=== PATIENT | male | born 1960 | race African-American/Black ===

== ENCOUNTER 2018-10-16 08:34 | Observation (INO) | payer MEDICARE ==
[2018-10-16 09:31] LABS: #Eosinphils 0.1 thou/uL (0.0-0.7); #Lymphocytes 1.3 thou/uL (1.20-3.40); #Monocytes 0.5 thou/uL (0.11-0.59); #Neutrophils 3.8 thou/uL (1.40-6.50); %Basophils 0.6 % (0.0-1.0); %Eosinophils 2.5 % (0.0-10.0); %Lymphocytes 22.3 % (21.0-51.0); %Monocytes 8.6 % (0.0-10.0); Hemoglobin 13.1 g/dL (14.0-18.0); Mean Corpuscular HGB CONC 32.1 g/dL (32.0-36.0); Mean Corpuscular Hemoglobin 30.6 pg (27.0-31.0); Mean Corpuscular Volume 95.5 fL (78.0-98.0); Mean Platelet Volume 9.8 fL (7.4-10.4); Platelet Count 79 thou/uL (130-400); Platelet Morphology Comment Appears Decreased; RBC Distribution Width 14.3 % (11.5-14.5); Red Blood Cell (RBC) Count 4.29 mill/uL (4.70-6.10); White Blood Cell (WBC) Count 5.7 thou/uL (4.8-10.8)
[2018-10-16 09:32] LABS: MDiff Complete? YES
[2018-10-16 09:35] LABS: ALT (SGPT) 10 U/L (8-55); AST (SGOT) 16 U/L (5-34); Albumin 3.9 g/dL (3.5-5.0); Alkaline Phosphatase 66 U/L (40-150); Anion Gap 16 mmol/L (10-20); BUN (Urea Nitrogen) 17 mg/dL (8.4-25.7); Bilirubin, Total 0.7 mg/dL (0.2-1.2); CK (CPK) 56 U/L (30-200); Calc. Creatinine Clearance 0 mL/min (70-130); Calcium 9.2 mg/dL (7.8-10.44); Carbon Dioxide 31 mmol/L (22-29); Chloride 95 mmol/L (98-107); Estimated GFR-MDRD 11; Globulin 3.4 g/dL (2.4-3.5); Glucose 93 mg/dL (70-105); Lipase 80 U/L (8-78); Protein, Total 7.3 g/dL (6.0-8.3); Sodium 138 mmol/L (136-145)
[2018-10-16 09:57] LABS: CKMB 1.4 ng/mL (0-6.6)
[2018-10-16] MEDS ORDERED: Aspirin Chewable 81 MG TAB ONE (10:03)
[2018-10-16] MEDS ORDERED: Nitroglycerin 2% Ointment 1 INCH/1 GM Packet ONE (10:03)
--- NOTE | 2018-10-16 10:26 | RAD ---
XR Chest 1 View Portable History: [Chest pain] Comparison: Radiograph every 2016 Findings: Heart size is enlarged. Small effusions. Mild pulmonary venous congestion. No pneumothorax. Dual lead AICD/pacer is present. Impression: Cardiomegaly, small effusions, and mild pulmonary venous congestion.
[2018-10-16] MEDS ORDERED: Enoxaparin Sodium 80 MG/0.8 ML SYRINGE ONE (12:34)
[2018-10-16 15:06] LABS: Troponin I 0.108 ng/mL (< 0.028)
[2018-10-16] MEDS ORDERED: Ondansetron ODT 4 MG TAB SL PRN (16:57)
[2018-10-16] MEDS ORDERED: Ondansetron PF 4 MG/2 ML Vial IVP PRN (16:57)
[2018-10-16 17:06] VITALS: BMI 23.4
[2018-10-16] MEDS: Nitroglycerin 2% Ointment 1 INCH/1 GM Packet TOP SCH (18:05)
[2018-10-16] MEDS: Melatonin 3 MG TAB PO PRN (23:08)
[2018-10-17] MEDS: Nitroglycerin 2% Ointment 1 INCH/1 GM Packet TOP SCH (00:23)
[2018-10-17] MEDS ORDERED: Ondansetron PF 4 MG/2 ML Vial IVP PRN (11:05)
[2018-10-17] MEDS ORDERED: Ondansetron ODT 4 MG TAB PO PRN (11:05)
[2018-10-17] MEDS: Lisinopril 20 MG TAB PO SCH (20:59)
[2018-10-17] MEDS: Melatonin 3 MG TAB PO PRN (20:59)
[2018-10-17] MEDS: hydrALAZINE 25 MG TAB PO SCH (20:59)
[2018-10-17] MEDS: Carvedilol 25 MG TAB PO SCH (21:00)
[2018-10-17] MEDS: Pravastatin Sodium 40 MG TAB PO SCH (21:00)
--- NOTE | 2018-10-17 21:22 | HP ---
CHIEF COMPLAINT: Chest pain. HISTORY OF PRESENT ILLNESS: Mr. López is a 58-year-old male with past medical history of end-stage renal disease, cardiomyopathy, hypertension, came because of chest pressure while getting dialysis. He said it was pressure-like, nonradiating, associated with some shortness of breath. He almost completed dialysis, almost at the end of it when he complained this pain, so he was sent to the hospital for evaluation. Also he had some nausea, but no vomiting. The patient gets dialysis Thursday, , Thursday, so the patient was sent to the ER. In the ER, the patient was evaluated and by the time he came to the ER, his chest pain resolved. He is being admitted to rule out myocardial infarction in view of his risk factors. PAST MEDICAL HISTORY: 1. Hypertension. 2. End-stage renal disease, on hemodialysis. 3. History of cardiomyopathy, CHF. 4. Hyperlipidemia. 5. Renal cell carcinoma. PAST SURGICAL HISTORY: 1. Status post right nephrectomy. 2. Status post hernia repair. 3. Status post AICD placement. CURRENT MEDICATIONS: He is not clear what he is taking, but he is supposed to be on: 1. Clonidine 0.1 b.i.d. 2. Lisinopril 20 mg b.i.d. 3. Procardia 60 mg b.i.d. 4. Coreg 25 b.i.d. 5. Spironolactone 25 mg daily. 6. Pravachol 40 mg at bedtime. 7. Prevacid 30 mg daily. ALLERGIES: NKDA. FAMILY HISTORY: Nothing significant. SOCIAL HISTORY: Lives alone. No history of smoking. No history of alcohol abuse. Rest of the review of system is unremarkable except for chest pressure. PHYSICAL EXAMINATION: GENERAL: The patient is alert, awake, and oriented x3. VITAL SIGNS: Temperature 98, pulse 80, respiration 20, blood pressure 120/80. HEENT: Head is normocephalic, atraumatic. Pupils are equal and reactive. Nasopharynx is pale and dry. Hard and soft palate. No lesions. SKIN: Turgor decreased. NECK: Supple. No JVD. LUNGS: Bilateral air entry present. No rales, rhonchi. HEART: S1 and S2, regular. ABDOMEN: Soft. No distention. No tenderness. Normal bowel sounds. RECTAL: Deferred. CENTRAL NERVOUS SYSTEM: Nonfocal. EXTREMITIES: No edema. LABORATORY DATA: CBC shows WBC 5.7, hemoglobin 13, hematocrit 40, platelets 79. Metabolic panel; sodium 138, potassium 4, chloride 95, CO2 31, BUN 17, creatinine 6, glucose 93. Troponin I 0.107. BNP of 3842. IMAGIN. EKG showed normal sinus rhythm. No acute ST-T wave changes seen. 2. Chest x-ray, cardiomegaly, mild congestion seen. ASSESSMENT: 1. Chest pressure, rule out myocardial infarction. 2. End-stage renal disease, on hemodialysis. 3. Hypertension. 4. Cardiomyopathy. 5. Hyperlipidemia. PLAN: 1. Vital signs q.4 hours. 2. Activity as tolerated. 3. Allergies: NKDA. 4. Hep-Lock. 5. Continue home medications. 6. Troponin I q.6 hours x2. 7. Diet, cardiac. 8. We will obtain stress test. Job ID: [id number]
[2018-10-18] MEDS: Carvedilol 25 MG TAB PO SCH ×2 (08:48→20:33)
[2018-10-18] MEDS: Aspirin Chewable 81 MG TAB PO SCH (08:48)
[2018-10-18] MEDS: Lisinopril 20 MG TAB PO SCH ×2 (08:49→20:33)
[2018-10-18] MEDS: Spironolactone 25 MG TAB PO SCH (08:49)
[2018-10-18] MEDS: hydrALAZINE 25 MG TAB PO SCH ×3 (08:53→20:32)
--- NOTE | 2018-10-18 19:09 | CON ---
DATE OF CONSULTATION: REASON FOR CONSULTATION: Chest pain. HISTORY OF PRESENT ILLNESS: Mr. López is a pleasant 58-year-old gentleman with past history of nonischemic cardiomyopathy. He has been cathed by Dr. Rene Louis in the past. He states he had a dull sensation noted in his substernal region. He had associated shortness of breath. This occurred while on dialysis. He did have some nausea, but no vomiting. He was seen in the emergency room and is being evaluated. His CK troponin has been negative. PAST MEDICAL HISTORY: Nonischemic cardiomyopathy, hyperlipidemia, renal cell carcinoma, end-stage renal disease, hypertension, nephrectomy, hernia repair, and AICD placement. MEDICATIONS: Procardia, lisinopril, clonidine, Coreg, spironolactone, Pravachol, and prevacid. ALLERGIES: NONE. REVIEW OF SYSTEMS: A 10-point review of systems is reviewed as above, otherwise negative. PHYSICAL EXAMINATION: GENERAL: Patient is a pleasant gentleman, who is in no acute distress. The patient appears their stated age. VITAL SIGNS: Blood pressure 101/63, pulse 66, and temperature 97.5. NEUROLOGIC: The patient is alert and oriented x3 with no focal neurologic deficits. HEENT: Sclerae without icterus. Mouth has moist mucous membranes with normal pallor. NECK: No JVD. Carotid upstroke brisk. No bruits bilaterally. LUNGS: Clear to auscultation with unlabored respirations. BACK: No scoliosis or kyphosis. CARDIAC: Regular rate and rhythm with normal S1 and S2. No S3 or S4 noted. No significant rubs, murmurs, thrills, or gallops noted throughout the precordium. PMI is not displaced. There is no parasternal heave. ABDOMEN: Soft, nontender, nondistended. No peritoneal signs present. No hepatosplenomegaly. No abnormal striae. EXTREMITIES: 2+ femoral and 2+ dorsalis pedis pulses. No cyanosis, clubbing, or edema. SKIN: No gross abnormalities. LAB: CK troponin negative. Hemoglobin 13.1 and creatinine 6.25. BNP of 38.2. Peak troponin of 0.119. IMPRESSION: 1. Chest pain. 2. Nonischemic cardiomyopathy. 3. End-stage renal disease. RECOMMENDATIONS: Mr. López has not had an evaluation from a cardiac standpoint for several years. He had an angiogram performed in 2014. At this point, recommend a noninvasive stress study to assess for any new changes. He does have multiple risk factors as described above. Further recommendations per Dr. Rene Louis in a.m. Job ID: [id number]
[2018-10-18] MEDS: Pravastatin Sodium 40 MG TAB PO SCH (20:33)
--- NOTE | 2018-10-19 03:32 | CON ---
DATE OF CONSULTATION: CONSULTING PHYSICIAN: Alvaro Chow MD REASON FOR CONSULTATION: Need for maintenance hemodialysis. IMPRESSION: 1. End-stage renal disease, on Thursday, , and Thursday schedule. 2. Chest pain with shortness of breath, query cause, possibly related to recurrent pericarditis with pericardial effusion. PLAN: 1. There is no emergent indication for renal replacement therapy (hemodialysis). Therefore, we will place this patient on his normal schedule of Thursday, and Thursday. 2. Further management will be dependent on the clinical course as well as further recommendations from Cardiology Service and the Primary Service. HISTORY OF PRESENT ILLNESS: This is a 58-year-old gentleman, who presented here with shortness of breath and some chest discomfort. Of note, the patient recently did have pericardial window due to large pericardial effusion with possible tamponade physiology. The patient presented here again with shortness of breath and chest discomfort, and the need for renal replacement therapy necessitated this renal consultation. PAST MEDICAL HISTORY: Significant for nonischemic cardiomyopathy, dyslipidemia, renal cell carcinoma and end-stage renal disease. MEDICATIONS: Reviewed and as documented on [facility]. ALLERGIES: NO KNOWN DRUG ALLERGIES. FAMILY HISTORY: Not significantly related to present illness. SOCIAL HISTORY: The patient is . No alcohol. No tobacco. No illicit drug use. 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 PHYSICAL EXAMINATION: GENERAL: The patient was found not to be in any significant distress. VITAL SIGNS: Noted with the following vital signs; afebrile temperature 98, pulse 77, blood pressure 124/72, respiratory rate of 20, and O2 saturations 99%. HEENT: Unremarkable. Moist oral mucosa. No conjunctival injection or icterus. NECK: Supple. CARDIOVASCULAR: First and second heart sounds were heard. RESPIRATORY: Clear to auscultation anteriorly. DIGESTIVE: Revealed a benign abdomen. EXTREMITIES: No peripheral edema. SKIN: No new gross rash. LYMPHATICS: No peripheral lymphadenopathy. SUMMARY: A 58-year-old gentleman with end-stage renal disease, who presented here with chest discomfort and shortness of breath. Thank you for this consultation. We will follow with you. Job ID: [id number]
[2018-10-19] MEDS: Spironolactone 25 MG TAB PO SCH (09:16)
[2018-10-19] MEDS: Carvedilol 25 MG TAB PO SCH (09:16)
[2018-10-19] MEDS: Aspirin Chewable 81 MG TAB PO SCH (09:16)
[2018-10-19] MEDS: hydrALAZINE 25 MG TAB PO SCH ×2 (09:16→15:26)
[2018-10-19] MEDS: Lisinopril 20 MG TAB PO SCH (09:17)
--- NOTE | 2018-10-19 11:24 | NM ---
EXAM: CARDIAC SPECT HISTORY: Chest pain, cardiomyopathy, end-stage renal disease, hypertension, dyslipidemia TECHNIQUE: A myocardial perfusion scan was performed using the single isotope 1 day protocol with gerhard hnetium 99m sestamibi. [10 mCi] was injected intravenously for the rest exam followed by 30 mCi for the stress study. Pharmacologic stress with adenosine was monitored and interpreted by Sil Quarles, nurse practitioner. FINDINGS: Homogeneous tracer distribution is seen in the myocardial segments on stress and rest image s without fixed or reversible defects. The left ventricular cavity is dilated Gated SPECT LVEF: 44% Wall motion exam: Mild global hypokinesis IMPRESSION: No evidence of reversible ischemia.
[2018-10-19] MEDS ORDERED: ADENOSINE 60 MG/20 ML VIAL ONE (15:09)
--- NOTE | 2018-10-19 15:23 | PDOC.CTH ---
Cardiology Progress Note - Subjective pt. seen and eval. He is presently in Dialysis and no complaints. No further chest pain since admission. - Objective Vital Signs Temp Pulse Resp BP Pulse Ox 10/19/18 07:42 98.1 F 73 16 116/68 97 10/19/18 03:35 98.3 F 60 16 105/62 95 Weight 161 lb 9.6 oz 10/18/18 10/19/18 10/20/18 06:59 06:59 06:59 Intake Total 1160 1210 Balance 1160 1210 - Physical Examination General/Neuro: alert & oriented x3 Neck: no JVD present Lungs: CTA Heart: RRR Abdomen: soft - Labs Result Diagrams: 10/16/18 09:03 10/16/18 09:03 Troponin/CKMB CK-MB (CK-2) 1.4 ng/mL (0-6.6) 10/16/18 09:03 Troponin I 0.110 ng/mL (< 0.028) H 10/16/18 17:33 - Assessment/Plan 1.Chest pain. Hx. of mild CAD. 50% RCA in 2013. Negative stress test today. EF 44%. Improved over prior EF.No further cardiac workup indicated at this time. 2. CMY: nonischemic. Continue present meds. AICD in place. 3. ESRD on hemodialysis. 4. Noncompliant with follow up. I suggest he see me in the offfice a month after d/c. If he has more episodes of chest pain then he may eventually need a repeat cardiac cath.
[2018-10-19 16:24] VITALS: BP 130/71; TEMP 97.4
--- NOTE | 2018-10-20 01:44 | PRG ---
DATE OF SERVICE: 10/19/2018 SUBJECTIVE: The patient was seen and examined. No new complaint noted with the following vital signs. OBJECTIVE: VITAL SIGNS: Afebrile, temperature 98.1, pulse 73, respiratory rate of 16, blood pressure of 160/68, and O2 saturations 97%. HEENT: Unremarkable. Moist oral mucosa. No conjunctival injection or icterus. NECK: Supple. CARDIOVASCULAR: First and second heart sounds were heard. RESPIRATORY: Clear to auscultation. DIGESTIVE: Revealed a benign abdomen with positive bowel sounds. EXTREMITIES: No peripheral edema. SKIN: No new gross rash. LYMPHATICS: No peripheral lymphadenopathy. IMPRESSION: 1. End-stage renal disease, hemodialysis dependent. 2. Chest pain, query cause. 3. History of recent pericardial effusion, status post pericardial window. PLAN: 1. The patient to be dialyzed today in accordance with the schedule. 2. Further management to be dependent on the clinical course. Job ID: [id number]
--- NOTE | 2018-10-20 02:34 | DIS ---
DATE OF ADMISSION: 10/16/2018 DATE OF DISCHARGE: 10/19/2018 ADMITTING DIAGNOSES: 1. Chest pain, rule out myocardial infarction. 2. End-stage renal disease, on hemodialysis. 3. Hypertension. 4. Cardiomyopathy. 5. Hyperlipidemia. FINAL DIAGNOSES: 1. Chest pain. No evidence of acute myocardial infarction. Negative Cardiolite stress test. 2. End-stage renal disease, on hemodialysis. 3. Hypertension. 4. Cardiomyopathy. 5. Hyperlipidemia. BRIEF SUMMARY OF HOSPITAL COURSE: Mr. López is a 58-year-old male admitted because of chest pain developed during dialysis. The patient was admitted to rule out myocardial infarction and serial cardiac enzymes done. He did not have any nausea or vomiting. No diaphoresis. The patient states he had a coronary angiogram done at [facility] 2 weeks ago. So, records were obtained and it showed he had a pericardial window for pericardial effusion with tamponade, but no angiogram was done. Cardiology was consulted and the patient was seen by Dr. Oakes and he felt in view of risk factors, the patient needed a stress test. The patient underwent stress test today and it is reported as no evidence of reversible ischemia. The patient does not have any more chest pain while in the hospital. In view of improvement, the patient is being discharged and at the time of discharge, he was stable, his vital signs stable. DISCHARGE MEDICATIONS: 1. Spironolactone 25 mg daily. 2. Pravachol 40 mg at bedtime. 3. Prevacid 30 mg daily. 4. Hydralazine 100 mg t.i.d. 5. Vitamin D 5000 units q.2 days. 6. Coreg 25 b.i.d. 7. Aspirin 81 mg daily. 8. Lisinopril 20 mg b.i.d. The patient will continue with hemodialysis and will come for followup in 2 weeks. Job ID: [id number] MTDD
--- NOTE | 2018-10-23 13:44 | EKG ---
Test Reason : CP Blood Pressure : / mmHG Vent. Rate : 098 BPM Atrial Rate : 098 BPM P-R Int : 166 ms QRS Dur : 092 ms QT Int : 412 ms P-R-T Axes : 069 101 093 degrees QTc Int : 525 ms Sinus rhythm with occasional , and consecutive Premature ventricular complexes and Premature atrial c omplexes Possible Left atrial enlargement Rightward axis Cannot rule out Inferior infarct , age undetermined Prolonged QT Abnormal ECG Confirmed by NAVI GARIBAY, KIRT (12), general expeditor JESSIE CARRION ([id number]) on 10/23/2018 1:44:32 PM Referred By: Confirmed By:KIRT MCELROY MD
--- NOTE | 2018-10-23 13:45 | EKG ---
Test Reason : Blood Pressure : / mmHG Vent. Rate : 089 BPM Atrial Rate : 089 BPM P-R Int : 180 ms QRS Dur : 092 ms QT Int : 430 ms P-R-T Axes : 069 111 138 degrees QTc Int : 523 ms Sinus rhythm with Premature atrial complexes with Abberant conduction Possible Left atrial enlargement Left posterior fascicular block Cannot rule out Inferior infarct , age undetermined Prolonged QT Abnormal ECG #2 No change from previous Confirmed by NAVI GARIBAY, KIRT (12), associate entertainment editor JESSIE CARRION ([id number]) on 10/23/2018 1:45:13 PM Referred By: Confirmed By:KIRT MCELROY MD
== END 2018-10-19 18:24 | disposition home or self-care (01) ==
LOC: EEVIPCON 08:34 → ERS 08:34 → 2SW 16:39
PROVIDERS: ADMIT Internal Medicine; ATTEND Internal Medicine
DX: R07.89 Other chest pain (principal); I13.2 Hypertensive heart and chronic kidney disease with heart failure and with stage 5 chronic kidney disease, or end stage renal disease; N18.6 End stage renal disease; I50.9 Heart failure, unspecified; E78.5 Hyperlipidemia, unspecified; I42.8 Other cardiomyopathies; Z79.82 Long term (current) use of aspirin; Z79.899 Other long term (current) drug therapy; Z90.5 Acquired absence of kidney; Z91.19 Patient's noncompliance with other medical treatment and regimen; Z95.810 Presence of automatic (implantable) cardiac defibrillator; Z99.2 Dependence on renal dialysis
CPT/HCPCS: 71045; 78452; 80053; 82550; 82553; 83690; 83880; 84484 ×2; 85025; 93005; 93017; 96372; 99285; A9500; G0378 ×3; 36415; J0153; J1650; Q0162

== ENCOUNTER 2019-01-25 14:50 | Outpatient (CLI) | payer MEDICARE ==
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
== END 2019-01-25 14:51 | disposition home or self-care (01) ==
LOC: RAD 14:50
PROVIDERS: ATTEND Internal Medicine
DX: M54.9 Dorsalgia, unspecified (principal); M79.602 Pain in left arm; M47.816 Spondylosis without myelopathy or radiculopathy, lumbar region
CPT/HCPCS: 72100

== ENCOUNTER 2019-03-01 16:10 | Inpatient (IN) | payer MEDICARE ==
[2019-03-01 16:54] LABS: #Eosinphils 0.1 thou/uL (0.0-0.7); #Lymphocytes 0.7 thou/uL (1.20-3.40); #Monocytes 0.4 thou/uL (0.11-0.59); #Neutrophils 4.5 thou/uL (1.40-6.50); %Basophils 0.2 % (0.0-1.0); %Eosinophils 1.1 % (0.0-10.0); %Lymphocytes 12.5 % (21.0-51.0); %Monocytes 6.9 % (0.0-10.0); %Neutrophils 79.4 % (42.0-75.0); Hemoglobin 12.2 g/dL (14.0-18.0); Mean Corpuscular HGB CONC 34.2 g/dL (32.0-36.0); Mean Corpuscular Hemoglobin 30.6 pg (27.0-31.0); Mean Corpuscular Volume 89.7 fL (78.0-98.0); Mean Platelet Volume 8.7 fL (7.4-10.4); Platelet Count 130 thou/uL (130-400); RBC Distribution Width 14.2 % (11.5-14.5); Red Blood Cell (RBC) Count 3.98 mill/uL (4.70-6.10); White Blood Cell (WBC) Count 5.6 thou/uL (4.8-10.8)
[2019-03-01 17:19] LABS: ALT (SGPT) 13 U/L (8-55); AST (SGOT) 27 U/L (5-34); Albumin 3.8 g/dL (3.5-5.0); Alkaline Phosphatase 45 U/L (40-150); Anion Gap 19 mmol/L (10-20); BUN (Urea Nitrogen) 19 mg/dL (8.4-25.7); Bilirubin, Total 0.6 mg/dL (0.2-1.2); Calc. Creatinine Clearance 0 mL/min (70-130); Calcium 9.3 mg/dL (7.8-10.44); Carbon Dioxide 29 mmol/L (22-29); Chloride 92 mmol/L (98-107); Estimated GFR-MDRD 9; Glucose 96 mg/dL (70-105); Potassium 4.7 mmol/L (3.5-5.1); Protein, Total 7.8 g/dL (6.0-8.3); Sodium 135 mmol/L (136-145)
--- NOTE | 2019-03-02 01:45 | CON ---
DATE OF CONSULTATION: REQUESTING PHYSICIANS: Dr. Elder as well as the ER physician. REASON FOR CONSULTATION: Need for maintenance hemodialysis. IMPRESSION: 1. End-stage renal disease, hemodialysis dependent, dialyzed today on a schedule of Thursday, , and Thursday. 2. Diarrhea, query cause. 3. Tachyarrhythmia, likely in the context of cardiomyopathy. PLAN: 1. The patient does not have any emergent indication for dialysis. 2. He will remain on his normal schedule of Tuesdays, , and Saturdays. 3. Avoid dairy products. 4. Further management to be dependent on the clinical course as well as further recommendations from the primary attending. HISTORY OF PRESENT ILLNESS: A 59-year-old gentleman with end-stage renal disease, on hemodialysis, Thursday, , and Thursday who has been having diarrhea for the past couple of days. Denies any blood in the stool. No vomiting, no abdominal pain, and no fever. The patient had normal dialysis today and continued with this persistent diarrhea for which he presented to the ER where he was noted to be tachyarrhythmic with heart rate up to the 130s. As a result of this, decision has been taken to admit this patient and need for maintenance dialysis necessitated renal consultation. PAST MEDICAL HISTORY: Significant for 1. End-stage renal disease, on hemodialysis. 2. Dilated cardiomyopathy. 3. Pericardial effusion, status post pericardial window. 4. Anemia of chronic kidney disease. 5. Hypertension. 6. Dyslipidemia. MEDICATIONS: Reviewed as documented on [facility]. ALLERGIES: NO KNOWN DRUG ALLERGIES. FAMILY HISTORY: Not significantly related to present illness. SOCIAL HISTORY: Denies alcohol, tobacco, or illicit drug use. 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 PHYSICAL EXAMINATION: GENERAL: The patient was found not to be in any obvious distress. Hemodynamically stable with following vital signs. VITAL SIGNS: Blood pressure 135/80, pulse of 123, respiratory rate of 18, O2 saturations of 98% with a temperature of 98.4. HEENT: Unremarkable. CARDIOVASCULAR: First and second heart sounds were heard. RESPIRATORY: Clear to auscultation. DIGESTIVE: Revealed a benign abdomen with positive bowel sounds. EXTREMITIES: No peripheral edema. SKIN: No new gross rash. LYMPHATICS: No peripheral lymphadenopathy. SUMMARY: A 59-year-old gentleman with end-stage renal disease, hemodialysis dependent, who presented here with persistent diarrhea. Thank you for this consultation. We will follow with you. Job ID: [id number]
[2019-03-02] MEDS: Polyethylene Glycol OPTH DROP 15 ML BOT EA EYE SCH ×3 (12:22→20:35)
[2019-03-02 16:30] LABS: Anion Gap 18 mmol/L (10-20); BUN (Urea Nitrogen) 27 mg/dL (8.4-25.7); Calc. Creatinine Clearance 8 mL/min (70-130); Calcium 9.1 mg/dL (7.8-10.44); Carbon Dioxide 28 mmol/L (22-29); Chloride 91 mmol/L (98-107); Estimated GFR-MDRD 7; Glucose 103 mg/dL (70-105); Potassium 3.9 mmol/L (3.5-5.1); Sodium 133 mmol/L (136-145)
[2019-03-02] MEDS: hydrALAZINE 25 MG TAB PO SCH ×2 (17:07→20:38)
[2019-03-02] MEDS ORDERED: Diltiazem HCl 125 MG, Admixture Fee 1 EACH in Sodium Chloride 0.9% 100 ML IVPB SCH (17:15)
[2019-03-02] MEDS ORDERED: Adenosine 6 MG/2 ML VIAL ONE ×2 (17:30→17:56)
--- NOTE | 2019-03-02 18:00 | HP ---
CHIEF COMPLAINT: Persistent diarrhea. HISTORY OF PRESENT ILLNESS: Mr. López is a 59-year-old male with past medical history of end-stage renal disease on hemodialysis, who came because of the diarrhea for 2 days. It is a watery stool, many times a day, some cramping abdomen. Also, he had a vomiting a day before, but not today. He did not have any fever. No nausea. No headache or dizziness. The patient goes for dialysis three times a week. He had dialysis today. The patient came to the hospital because of the persistent diarrhea and weakness. In the ER, the patient was evaluated and found to have tachycardia. They tried to give some fluids, but his tachycardia remained the same. He is being admitted for further evaluation and management. PAST MEDICAL HISTORY: 1. End-stage renal disease, on hemodialysis three times a week. 2. Hypertension. 3. Severe cardiomyopathy. 4. Hyperlipidemia. 5. Renal cell carcinoma. PAST SURGICAL HISTORY: Status post right nephrectomy, status post hernia repair, and status post AICD placement. CURRENT MEDICATIONS: The patient is on; 1. Amiodarone 200 mg daily. 2. Aspirin 81 mg daily. 3. Lipitor 10 mg at bedtime. 4. Coreg 25 b.i.d. 5. Vitamin D 5000 units daily. 6. Hydralazine 100 mg t.i.d. 7. Imdur 60 mg b.i.d. 8. Lisinopril 20 mg daily. 9. Minoxidil 10 mg daily. 10. Procardia XL 90 mg b.i.d. 11. Protonix 40 mg daily. 12. Also on eye drops, latanoprost one drop each eye at bedtime. 13. Propylene glycol, which is Systane eye drops one drop each eye q.i.d. 14. Also on Ketotifen Fumarate eye drops one drop b.i.d. ALLERGIES: NKDA. FAMILY HISTORY: Nothing contributory. SOCIAL HISTORY: The patient lives alone. No history of smoking. No history of alcohol. REVIEW OF SYSTEMS: CARDIOVASCULAR: No chest pain. No shortness of breath. RESPIRATORY: No fever or cough. GASTROINTESTINAL: He has abdominal cramping and diarrhea. CENTRAL NERVOUS SYSTEM: No headache. Feels some dizzy and weak. PHYSICAL EXAMINATION: GENERAL: The patient is alert, awake, and oriented x3. VITAL SIGNS: Temperature 98, pulse 77, respirations 20, and blood pressure 130/80. HEENT: Head is normocephalic and atraumatic. Pupils are equal and reactive. Nasopharynx is pale and dry. Hard and soft palate. No lesions. SKIN: Turgor decreased. NECK: Supple. No JVD. LUNGS: Bilateral air entry present. No rales. No rhonchi. HEART: S1 and S2. Regular. ABDOMEN: Soft and diffusely tender. No guarding. No rigidity. Bowel sounds present. RECTAL: Deferred. CENTRAL NERVOUS SYSTEM: No focal deficits. LABORATORY DATA: CBC shows WBC 5, hemoglobin 12, hematocrit 35, and platelets 130. Metabolic panel; sodium 135, potassium 4.7, chloride 97, CO2 of 21, BUN 19, creatinine 7.4, and glucose 96. EKG shows normal sinus rhythm, no acute ST changes seen. He did have some sinus tachycardia with heart rate of 116. ASSESSMENT: 1. Persistent diarrhea, rule out Clostridium difficile. 2. Hypertension. 3. End-stage renal disease, on hemodialysis. 4. Cardiomyopathy. 5. Hyperlipidemia. 6. History of renal cell carcinoma. PLAN: 1. Vital signs q.4 hours. 2. Activity as tolerated. 3. Allergies, NKDA. 4. Hep-Lock. 5. Stool studies for Clostridium difficile and culture. 6. Nephrology consult. 7. Continue home medications. 8. Arline barr Job ID: [id number]
--- NOTE | 2019-03-02 18:27 | CON ---
DATE OF CONSULTATION: REASON FOR CONSULTATION: SVT. HISTORY OF PRESENT ILLNESS: Mr. López is a 59-year-old gentleman, who is the patient of Dr. Rene Louis. He recently was admitted for diarrhea. He is currently on dialysis. He developed tachycardia. Sharon malik was called. He was then transferred to telemetry monitoring. During my visit, he appeared fairly stable. Blood pressure was 120s. Heart rate continues to be in the 140s consistently. PAST MEDICAL HISTORY: End-stage renal disease, cardiomyopathy, hypertension, hyperlipidemia, renal cell carcinoma, right nephrectomy, hernia repair, and status post ICD. HOME MEDICATIONS: Include; 1. Aspirin. 2. Amiodarone. 3. Lipitor. 4. Coreg. 5. Vitamin D. 6. Hydralazine. 7. Imdur. 8. Lisinopril. 9. Minoxidil. 10. Procardia. 11. Protonix. REVIEW OF SYSTEMS: A 10-point review of systems is reviewed as above, otherwise negative. PHYSICAL EXAMINATION: VITAL SIGNS: Blood pressure 129/90, pulse 145 and now 90, and respirations 20. GENERAL: Patient is a pleasant male, who is in no acute distress. The patient appears their stated age. NEUROLOGIC: The patient is alert and oriented x3 with no focal neurologic deficits. HEENT: Sclerae without icterus. Mouth has moist mucous membranes with normal pallor. NECK: No JVD. Carotid upstroke brisk. No bruits bilaterally. LUNGS: Clear to auscultation with unlabored respirations. BACK: No scoliosis or kyphosis. CARDIAC: Regular rate and rhythm with normal S1 and S2. No S3 or S4 noted. No significant rubs, murmurs, thrills, or gallops noted throughout the precordium. PMI is not displaced. There is no parasternal heave. ABDOMEN: Soft, nontender, nondistended. No peritoneal signs present. No hepatosplenomegaly. No abnormal striae. EXTREMITIES: AV fistula present. 2+ femoral and 2+ dorsalis pedis pulses. No cyanosis, clubbing, or edema. SKIN: No gross abnormalities. PERTINENT LABORATORY DATA: Hemoglobin 12.2. Creatinine 9.3. Hospital course: The patient was given adenosine 12 mg IV x1. He was monitored. He converted to sinus rhythm. IMPRESSION: 1. Supraventricular tachycardia, now sinus rhythm. 2. Cardiomyopathy. 3. Status post implantable cardioverter-defibrillator. 4. Diarrhea. 5. End-stage renal disease. RECOMMENDATIONS: We will continue amiodarone therapy in addition to Coreg. Seek the etiology to his diarrhea and support as needed. Further recommendation per Dr. Rene Louis in a.m. Job ID: [id number]
[2019-03-02] MEDS: Carvedilol 25 MG TAB PO SCH (20:36)
[2019-03-02] MEDS: Ketotifen Fumarate 0.025% Ophth Soln 5 ml Bottle EA EYE SCH (20:36)
[2019-03-02] MEDS: Atorvastatin Calcium 10 MG TAB PO SCH (20:36)
[2019-03-02] MEDS: Latanoprost 0.005% Ophth Soln 2.5 ml Bottle EA EYE SCH (20:36)
[2019-03-02] MEDS: NIFEdipine XL 90 MG TAB PO SCH (20:37)
[2019-03-03] MEDS ORDERED: Sodium Chloride 0.9% 500 ML IV SCH (01:00)
[2019-03-03] MEDS ORDERED: Ondansetron PF 4 MG/2 ML Vial SLOW IVP PRN (01:40)
[2019-03-03] MEDS ORDERED: Sodium Chloride 0.9% 1,000 ML IV SCH (02:00)
--- NOTE | 2019-03-03 08:18 | PDOC.CPN ---
- Subjective Date: 03/03/19 Time: 08:23 Interval history: The pt seen and examined. No overnight events. No cardiac complaints. - Objective Allergies/Adverse Reactions: Allergies Allergy/AdvReac Type Severity Reaction Status Date / Time No Known Drug Allergies Allergy Verified 03/01/19 21:02 Visit Medications: Current Medications Adenosine (Adenocard) 12 mg IVP 1750 ONE Stop: 03/03/19 17:51 Amiodarone HCl (Cordarone) 200 mg PO DAILY [facility] Aspirin (Ecotrin) 81 mg PO DAILY [facility] Atorvastatin Calcium (Lipitor) 10 mg PO HS [facility] Last Admin: 03/02/19 20:36 Dose: 10 mg Carvedilol (Coreg) 25 mg PO BID [facility] Last Admin: 03/02/19 20:36 Dose: 25 mg Cholecalciferol (Vitamin D3) 5,000 units PO DAILY [facility] Hydralazine HCl (Apresoline) 100 mg PO TID [facility] Last Admin: 03/02/19 20:38 Dose: 100 mg Isosorbide Mononitrate (Imdur) 60 mg PO BID [facility] Last Admin: 03/02/19 20:36 Dose: 60 mg Ketotifen Fumarate (Zaditor 0.025% Ophth Soln) 1 drop EA EYE BID [facility] Last Admin: 03/02/19 20:36 Dose: 1 drop Latanoprost (Xalatan 0.005% Ophth Soln) 1 drop EA EYE [facility] Last Admin: 03/02/19 20:36 Dose: 1 drop Lisinopril (Zestril) 20 mg PO DAILY [facility] Minoxidil (Minoxidil) 10 mg PO DAILY [facility] Nifedipine (Procardia Xl) 90 mg PO BID [facility] Last Admin: 03/02/19 20:37 Dose: 90 mg Ondansetron HCl (Zofran) 4 mg SLOW IVP Q6H PRN PRN Reason: Nausea/Vomiting Last Admin: 03/03/19 02:30 Dose: 4 mg Pantoprazole Sodium (Protonix) 40 mg PO DAILY [facility] Propylene Glycol (Systane Opth Drop 15ml Bot) 1 drop EA EYE QID [facility] Last Admin: 03/02/19 20:35 Dose: 1 drop Vital Signs & Weight: Vital Signs Temp Pulse BP BP 03/03/19 06:49 96.7 F L 03/03/19 03:29 96.4 F L 03/03/19 01:02 97.5 F L 03/03/19 00:00 81 74/48 L 03/02/19 20:38 92 133/80 03/02/19 20:37 92 133/80 Admit Weight 152 lb 1 oz Weight 152 lb 1 oz - Physical Exam General: alert & oriented x3 Neck: supple neck Cardiac: regular rate and rhythm, S1/S2 Lungs: decreased breath sounds Abdomen: unremarkable Skin: clear Musculoskeletal: normal range of motion - Labs Result Diagrams: 03/01/19 16:40 03/02/19 16:02 - Telemetry Sinus rhythms and dysrhythmias: sinus rhythm - Assessment/Plan Assessment/Plan: 1. s/p SVT - stable with Amiodarone 200mg PO qd; On BBlocker; cont. to monitor on tele 2. Acute on chronic combined HF with EF 30-35% and grade III dd - stable with RA ; On Coreg, Lisinopril and on HD 3. Non-ischemic CMY with AICD placement 4. Diarrhea - no diarrhea during this Admission 5. CAD with 50% stesnosis in RCA in 2013 - asymptomatic; on BBlocker, GINI, ASA, Lipitor 6. ESRD with HD 7. HTN - stable MAR reviewed * Echo on 03/02/2019 with EF 30-35%, grade III dd, mild LVH, mild-mod MR, severe TR, mild MI Pt. seen and eval. by me. I agree with the A/P by the PASTRY ARTIST. I will ask EP to see the pt. , he may eventually need an ablation of the SVT.He denies any complaints at this time. I will ask them to interrogate the device, I can not find that it was done yesterday. He is sheduled for dialysis shunt revision tomorrow and I believe he is stable for that. alvin
[2019-03-03] MEDS: Aspirin 81 mg Enteric Coated Tablet PO SCH (09:24)
[2019-03-03] MEDS: Carvedilol 25 MG TAB PO SCH ×2 (09:25→20:34)
[2019-03-03] MEDS: Ketotifen Fumarate 0.025% Ophth Soln 5 ml Bottle EA EYE SCH ×2 (09:26→20:34)
[2019-03-03] MEDS: Polyethylene Glycol OPTH DROP 15 ML BOT EA EYE SCH ×4 (09:26→20:35)
[2019-03-03] MEDS: Minoxidil 10 MG TAB PO SCH (12:33)
[2019-03-03] MEDS: hydrALAZINE 25 MG TAB PO SCH ×3 (12:33→20:40)
[2019-03-03] MEDS: Amiodarone 200 MG TAB PO SCH (12:33)
[2019-03-03] MEDS: NIFEdipine XL 90 MG TAB PO SCH ×2 (12:33→20:40)
[2019-03-03] MEDS: Lisinopril 20 MG TAB PO SCH (12:33)
--- NOTE | 2019-03-03 14:58 | RAD ---
EXAM: CHEST ONE VIEW HISTORY: CHF COMPARISON: 10/16/2018 FINDINGS: A dual-lead left subclavian as it approximates place. Cardiac silhouette remains markedly enlarged pu lmonary vasculature is within normal limits. The lungs are clear. Vascular calcifications are again seen in the thoracic aorta. No other interval change. IMPRESSION: 1. Cardiomegaly. 2. No acute cardiopulmonary process.
[2019-03-03] MEDS ORDERED: Adenosine 6 MG/2 ML VIAL IVP ONE (17:50)
--- NOTE | 2019-03-03 18:04 | CON ---
DATE OF CONSULTATION: HISTORY OF PRESENT ILLNESS: Peter López is a 59-year-old gentleman, who was brought to the MICU after he became hypotensive and bradycardic. He has end-stage renal disease, on dialysis for many years. He said he has never smoked. He has had diarrhea for a period of several days with some vague right-sided chest pain, but no fever or chills. PAST MEDICAL HISTORY: End-stage renal disease, renal cancer, myocardial infarction, coronary artery disease, high cholesterol, hyperlipidemia, sleep apnea, congestive heart failure, cardiomyopathy. PAST SURGICAL HISTORY: Included nephrectomy, apparently bilateral gastric surgery access. HOME MEDICATIONS: 1. Hydralazine 100. 2. Eyedrops. 3. Procardia XL 90. 4. Minoxidil 10. 5. Zestril 20. 6. Prevacid 30. 7. ISMO 60. 8. Aspirin. 9. Coreg 25 b.i.d. 10. Amiodarone 200. ALLERGIES: NONE. SOCIAL AND FAMILY HISTORY: Unremarkable. No alcohol or tobacco abuse. PHYSICAL EXAMINATION: VITAL SIGNS: Sats are 94%, blood pressure 113/79, pulse 95, respiratory rate 20. GENERAL: He is being dialyzed. Awake, alert, and responsive. CHEST: No wheezing or crackles. CARDIAC: Normal S1 and S2. No gallops. ABDOMEN: No masses. LABORATORY DATA: Creatinine 3.6. Echo shows decreased EF. IMPRESSION: End-stage renal disease, bilateral nephrectomy for carcinoma, renal failure, hypertension. PLAN: Pulmonary mustafa, he appears to be improved in his blood pressure. Continue cardiac care. Pulmonary will follow while in the MICU. At this stage, nothing additional to add. Consultation note, 70 minutes, 50% direct patient care. Job ID: [id number]
[2019-03-03] MEDS: Atorvastatin Calcium 10 MG TAB PO SCH (20:33)
[2019-03-03] MEDS: Latanoprost 0.005% Ophth Soln 2.5 ml Bottle EA EYE SCH (20:35)
[2019-03-04] MEDS: Amiodarone 200 MG TAB PO SCH (08:35)
[2019-03-04] MEDS: Aspirin 81 mg Enteric Coated Tablet PO SCH (08:35)
[2019-03-04] MEDS: Carvedilol 25 MG TAB PO SCH ×2 (08:36→20:55)
[2019-03-04] MEDS: hydrALAZINE 25 MG TAB PO SCH ×3 (08:36→20:55)
[2019-03-04] MEDS: Lisinopril 20 MG TAB PO SCH (08:37)
[2019-03-04] MEDS: Polyethylene Glycol OPTH DROP 15 ML BOT EA EYE SCH ×4 (08:37→20:59)
[2019-03-04] MEDS: Ketotifen Fumarate 0.025% Ophth Soln 5 ml Bottle EA EYE SCH ×2 (08:37→20:59)
[2019-03-04] MEDS: NIFEdipine XL 90 MG TAB PO SCH ×2 (08:38→20:56)
[2019-03-04] MEDS: Minoxidil 10 MG TAB PO SCH (08:38)
--- NOTE | 2019-03-04 09:25 | PRG ---
DATE OF SERVICE: 03/04/2019 SUBJECTIVE: This morning, his diarrhea has improved. He is no longer short of breath. OBJECTIVE: VITAL SIGNS: Pulse is 84, temperature 97, blood pressure . He was dialyzed yesterday. CHEST: No wheezing or crackles. CARDIAC: Normal S1 and S2. No gallops. ABDOMEN: No masses. ASSESSMENT AND PLAN: 1. Congestive heart failure. 2. Renal failure and diarrhea, resolved. 3. Pulmonary mustafa, nothing additional to offer. We will follow at a distance. Please call if needed. Job ID: [id number]
--- NOTE | 2019-03-04 12:28 | PDOC.CPN ---
- Subjective Date: 03/04/19 Time: 12:30 Interval history: The pt seen and examined. No overnight events. No cardiac complaints. - Objective Allergies/Adverse Reactions: Allergies Allergy/AdvReac Type Severity Reaction Status Date / Time No Known Drug Allergies Allergy Verified 03/01/19 21:02 Visit Medications: Current Medications Amiodarone HCl (Cordarone) 200 mg PO DAILY [facility] Last Admin: 03/04/19 08:35 Dose: 200 mg Aspirin (Ecotrin) 81 mg PO DAILY [facility] Last Admin: 03/04/19 08:35 Dose: 81 mg Atorvastatin Calcium (Lipitor) 10 mg PO HS [facility] Last Admin: 03/03/19 20:33 Dose: 10 mg Carvedilol (Coreg) 25 mg PO BID [facility] Last Admin: 03/04/19 08:36 Dose: 25 mg Cholecalciferol (Vitamin D3) 5,000 units PO DAILY [facility] Last Admin: 03/04/19 08:36 Dose: 5,000 units Hydralazine HCl (Apresoline) 100 mg PO TID [facility] Last Admin: 03/04/19 08:36 Dose: Not Given Isosorbide Mononitrate (Imdur) 60 mg PO BID [facility] Last Admin: 03/04/19 08:37 Dose: 60 mg Ketotifen Fumarate (Zaditor 0.025% Ophth Soln) 1 drop EA EYE BID [facility] Last Admin: 03/04/19 08:37 Dose: 1 drop Latanoprost (Xalatan 0.005% Ophth Soln) 1 drop EA EYE HS [facility] Last Admin: 03/03/19 20:35 Dose: 1 drop Lisinopril (Zestril) 20 mg PO DAILY [facility] Last Admin: 03/04/19 08:37 Dose: Not Given Minoxidil (Minoxidil) 10 mg PO DAILY [facility] Last Admin: 03/04/19 08:38 Dose: Not Given Nifedipine (Procardia Xl) 90 mg PO BID [facility] Last Admin: 03/04/19 08:38 Dose: Not Given Ondansetron HCl (Zofran) 4 mg SLOW IVP Q6H PRN PRN Reason: Nausea/Vomiting Last Admin: 03/03/19 02:30 Dose: 4 mg Pantoprazole Sodium (Protonix) 40 mg PO DAILY [facility] Last Admin: 03/04/19 08:37 Dose: 40 mg Propylene Glycol (Systane Opth Drop 15ml Bot) 1 drop EA EYE QID [facility] Last Admin: 03/04/19 08:37 Dose: 1 drop Vital Signs & Weight: Vital Signs Temp Pulse BP Pulse Ox 03/04/19 11:24 97.0 F L 03/04/19 08:36 84 116/81 03/04/19 08:00 96 03/04/19 07:25 97.0 F L 03/04/19 03:13 97.0 F L Admit Weight 152 lb 1 oz Weight 152 lb 1 oz - Physical Exam General: alert & oriented x3 Cardiac: regular rate and rhythm, S1/S2 Lungs: clear to auscultation, decreased breath sounds Neuro: cranial nerve 2-12 intact Abdomen: unremarkable Skin: clear Musculoskeletal: normal range of motion - Labs Result Diagrams: 03/01/19 16:40 03/02/19 16:02 - Telemetry Sinus rhythms and dysrhythmias: sinus rhythm - Assessment/Plan Assessment/Plan: 1. s/p SVT - stable with Amiodarone 200mg PO qd; On BBlocker; cont. to monitor on tele; Plan for EP study and possible RFA by Dr Romo on 03/07/2019 2. Acute on chronic combined HF with EF 30-35% and grade III dd - stable with RA ; On Coreg, Lisinopril and on HD 3. Non-ischemic CMY with AICD placement 4. Diarrhea - no diarrhea during this Admission 5. CAD with 50% stesnosis in RCA in 2013 - asymptomatic; on BBlocker, GINI, ASA, Lipitor 6. ESRD with HD; plan for HD shunt revison 2/2 pseudoaneurysm today 7. HTN - stable MAR reviewed * Echo on 03/02/2019 with EF 30-35%, grade III dd, mild LVH, mild-mod MR, severe TR, mild CA * Plan for EP study and possible RFA by Dr Romo on 03/07/2019 Pt. seen and eval. by me. I agree with the A/P by the PRODUCTION CONSULTANT. No further arrhythmias. Seen by EP and plan for EP study next week. Plan for AV fistula repair today. chest clear. RRR. No edema.
[2019-03-04] MEDS ORDERED: Heparin 10,000 UNITS/1 ML VIAL ONE (15:33)
[2019-03-04] MEDS ORDERED: Protamine Sulfate 50 MG/5 ML VIAL ONE (15:33)
[2019-03-04] MEDS ORDERED: Lidocaine 2% PF 5 ML VIAL ONE (15:33)
[2019-03-04] MEDS ORDERED: Bupivacaine 0.25% HCL 30 ML VIAL ONE (15:33)
[2019-03-04] MEDS ORDERED: Bupivacaine/Epinephrine 0.25% 30 ML VIAL ONE (15:34)
[2019-03-04] MEDS ORDERED: Heparin 5,000 UNITS/ML VIAL ONE (15:37)
[2019-03-04] MEDS ORDERED: Midazolam HCl 2 mg/2 ml Vial ONE ×2 (15:39→15:55)
[2019-03-04] MEDS ORDERED: Fentanyl 100 MCG/2 ML VIAL ONE (15:39)
[2019-03-04] MEDS ORDERED: Chloroprocaine HCl/PF 20 ML VIAL ONE (15:49)
[2019-03-04] MEDS ORDERED: Bupivacaine PF 0.75% SDV 10 ML ONE (15:49)
[2019-03-04] MEDS ORDERED: Promethazine HCl 25 MG/ML VIAL IM PRN (19:20)
[2019-03-04] MEDS ORDERED: Promethazine HCl 25 MG/ML VIAL SLOW IVP PRN (19:20)
[2019-03-04] MEDS ORDERED: Ondansetron HCl/PF 4 MG/2 ML Vial IVP PRN (19:20)
[2019-03-04] MEDS: Atorvastatin Calcium 10 MG TAB PO SCH (20:55)
--- NOTE | 2019-03-04 21:42 | PRG ---
DATE OF SERVICE: 03/04/2019 SUBJECTIVE: The patient is seen and examined with no new complaints noted with the following vital signs. OBJECTIVE: VITAL SIGNS: Afebrile. Heart rate 84, blood pressure 160/81. HEENT: Unremarkable. CARDIOVASCULAR SYSTEM: First and second heart sounds were heard. RESPIRATORY SYSTEM: Clear to auscultation. DIGESTIVE SYSTEM: Revealed a benign abdomen. EXTREMITIES: No peripheral edema. SKIN: No new gross rash. LYMPHATICS: No peripheral lymphadenopathy. IMPRESSION: 1. End-stage renal disease, on hemodialysis. 2. Tachyarrhythmia. 3. Congestive heart failure with ejection fraction of about 30% to 35%. PLAN: 1. The patient to continue with dialysis as scheduled on Thursday, , and Thursday. 2. The patient to undergo EP study with possibility of undergoing radiofrequency ablation, possibly on Thursday by the EP physician. 3. Further management to be dependent on the clinical course. Job ID: [id number]
[2019-03-04] MEDS: Latanoprost 0.005% Ophth Soln 2.5 ml Bottle EA EYE SCH ×2 (22:29→22:32)
[2019-03-05 09:16] LABS: #Eosinphils 0.1 thou/uL (0.0-0.7); #Lymphocytes 1.1 thou/uL (1.20-3.40); #Monocytes 0.2 thou/uL (0.11-0.59); #Neutrophils 4.2 thou/uL (1.40-6.50); %Basophils 0.4 % (0.0-1.0); %Eosinophils 1.9 % (0.0-10.0); %Lymphocytes 20.3 % (21.0-51.0); %Monocytes 3.3 % (0.0-10.0); %Neutrophils 74.3 % (42.0-75.0); Hemoglobin 10.9 g/dL (14.0-18.0); Mean Corpuscular Hemoglobin 30.1 pg (27.0-31.0); Mean Corpuscular Volume 91.2 fL (78.0-98.0); Mean Platelet Volume 7.7 fL (7.4-10.4); Platelet Count 148 thou/uL (130-400); RBC Distribution Width 14.2 % (11.5-14.5); Red Blood Cell (RBC) Count 3.62 mill/uL (4.70-6.10); White Blood Cell (WBC) Count 5.6 thou/uL (4.8-10.8)
[2019-03-05 09:33] LABS: Anion Gap 16 mmol/L (10-20); BUN (Urea Nitrogen) 26 mg/dL (8.4-25.7); Calc. Creatinine Clearance 10 mL/min (70-130); Calcium 8.5 mg/dL (7.8-10.44); Carbon Dioxide 25 mmol/L (22-29); Chloride 98 mmol/L (98-107); Estimated GFR-MDRD 9; Glucose 142 mg/dL (70-105); Potassium 4.1 mmol/L (3.5-5.1); Sodium 135 mmol/L (136-145)
--- NOTE | 2019-03-05 09:45 | PDOC.GSPN ---
Surgery Progress Note: Subj - Subjective Narrative: Fistula has a good thrill and the incision looks good. Patient is not having much in the way of pain. I will see him in my clinic in 2-3 weeks. Surgery Progress Note: Obj - Vital signs Vital signs: Vital Signs - Most Recent Temp Pulse Resp BP Pulse Ox 97.1 F L 68 18 121/79 96 03/05/19 07:18 03/04/19 20:56 03/02/19 19:34 03/04/19 20:56 03/04/19 20:00 Surgery Progress Note: Results - Labs Result Diagrams: 03/05/19 09:10 03/05/19 09:10 Lab results: Laboratory Results - last 24 hr 03/05/19 03/05/19 09:10 09:10 WBC 5.6 RBC 3.62 L Hgb 10.9 L Hct 33.1 L MCV 91.2 MCH 30.1 MCHC 33.0 RDW 14.2 Plt Count 148 MPV 7.7 Neutrophils % 74.3 Lymphocytes % 20.3 L Monocytes % 3.3 Eosinophils % 1.9 Basophils % 0.4 Neutrophils # 4.2 Lymphocytes # 1.1 L Monocytes # 0.2 Eosinophils # 0.1 Basophils # 0.0 Sodium 135 L Potassium 4.1 Chloride 98 Carbon Dioxide 25 Anion Gap 16 BUN 26 H Creatinine 7.84 H Estimated GFR (MDRD) 9 Glucose 142 H Calcium 8.5
--- NOTE | 2019-03-05 09:58 | PDOC.OP ---
Operative Note - Operative Note Operative Note: PROCEDURE: Right upper arm cephalic fistula pseudoaneurysm repair SURGEON: Hong Edmond M.D. DATE: 03/04/2019 PREOPERATIVE DIAGNOSIS: Right upper arm cephalic fistula pseudoaneurysm POSTOPERATIVE DIAGNOSIS: Right upper arm cephalic fistula pseudoaneurysm HISTORY: Patient with 2 large pseudoaneurysms of the right upper arm cephalic fistula. He has had episodes of bleeding from each of these pseudoaneurysms. The decision was made to proceed with repair of the more distal pseudoaneurysm first, allowing this to heal before proceeding with repair of the more proximal pseudoaneurysm. PROCEDURE IN DETAIL: After informed consent was obtained and appropriate preoperative antibodies administered the patient was taken to the operating room was placed in supine position and monitored anesthesia care was administered. A preoperative block had been administered and adequacy of the block was confirmed. He was prepped and draped in standard sterile fashion and an incision made near the distal end of the most distal pseudoaneurysm. The normal caliber fistula was dissected free circumferentially and vessel loops placed around this to obtain proximal control. An elliptical incision was then made over the remaining pseudoaneurysm excising the most abnormal skin and the pseudoaneurysm was dissected free medially and laterally until it was able to be mobilized in both directions far enough to exclude the aneurysmally dilated anterior portion. A straight Satinsky clamp was then placed longitudinally excluding the aneurysmally dilated portion but preserving flow through the fistula through the posterior portion. The pseudoaneurysm was resected and the fistula closed with a running 4-0 Prolene suture with excellent technical result. The skin edges were brought together and there was still excess skin so some additional skin laterally was excised allowing closure of the medial skin flap over the fistula, offsetting the 2 incisions. A few small oozing points in the subcutaneous tissue were controlled with electrocautery. The wound was irrigated and hemostasis confirmed. Avitene was placed to the wound bed and across the fistula incision as a precaution and subcutaneous tissues were reapproximated with a running 3-0 Monocryl suture. The skin was then closed with a running 4-0 subcuticular Monocryl suture and Dermabond dressings were placed. The patient was taken to recovery in good condition. Estimated blood loss is minimal. There were no complications. There were no specimens
[2019-03-05] MEDS: hydrALAZINE 25 MG TAB PO SCH ×2 (10:17→15:25)
[2019-03-05] MEDS: Lisinopril 20 MG TAB PO SCH (10:18)
[2019-03-05] MEDS: Polyethylene Glycol OPTH DROP 15 ML BOT EA EYE SCH ×4 (10:19→21:49)
[2019-03-05] MEDS: Ketotifen Fumarate 0.025% Ophth Soln 5 ml Bottle EA EYE SCH ×2 (10:33→21:49)
--- NOTE | 2019-03-05 12:49 | PRG ---
DATE OF SERVICE: 03/03/2019 SUBJECTIVE: The patient noted with the following vital signs. OBJECTIVE: VITAL SIGNS: Blood pressure 133/80. HEENT: Unremarkable. CARDIOVASCULAR SYSTEM: First and second heart sounds were heard. RESPIRATORY SYSTEM: Clear to auscultation. DIGESTIVE SYSTEM: Revealed a benign abdomen. EXTREMITIES: No peripheral edema. SKIN: No new gross rash. LYMPHATICS: No peripheral lymphadenopathy. IMPRESSION: 1. End-stage renal disease, hemodialysis dependent. 2. Labile hemodynamics in the context of acute anemia. PLAN: 1. The patient's heart rate seems to be better controlled. 2. The patient to be dialyzed with ultrafiltration as tolerated by hemodynamics. 3. Further management to be dependent on the clinical course. Job ID: [id number]
[2019-03-05] MEDS: Minoxidil 10 MG TAB PO SCH (13:01)
[2019-03-05] MEDS: Amiodarone 200 MG TAB PO SCH (13:01)
[2019-03-05] MEDS: Aspirin 81 mg Enteric Coated Tablet PO SCH (13:01)
[2019-03-05] MEDS: NIFEdipine XL 90 MG TAB PO SCH (13:02)
[2019-03-05] MEDS: Carvedilol 25 MG TAB PO SCH ×2 (13:02→15:26)
--- NOTE | 2019-03-05 13:40 | PDOC.CPN ---
- Subjective Date: 03/05/19 Time: 13:38 Interval history: No new issues. - Review of Systems General: denies: fever/chills, weight/appetite/sleep changes, night sweats, fatigue Respiratory: denies: cough, congestion, shortness of breath, exercise intolerance Cardiovascular: denies: chest pain, palpitation, edema, paroxysmal nocturnal dyspnea, orthopnea Gastrointestinal: denies: nausea, vomiting, diarrhea, constipation, abd pain, GI bleeding Musculoskeletal: denies: pain, tenderness, stiffness, swelling, arthritis/ arthralgias Neurological: denies: numbness, syncope, seizure, weakness - Objective Allergies/Adverse Reactions: Allergies Allergy/AdvReac Type Severity Reaction Status Date / Time No Known Drug Allergies Allergy Verified 03/01/19 21:02 Visit Medications: Current Medications Amiodarone HCl (Cordarone) 200 mg PO DAILY [facility] Last Admin: 03/05/19 13:01 Dose: 200 mg Aspirin (Ecotrin) 81 mg PO DAILY [facility] Last Admin: 03/05/19 13:01 Dose: 81 mg Atorvastatin Calcium (Lipitor) 10 mg PO HS [facility] Last Admin: 03/04/19 20:55 Dose: 10 mg Carvedilol (Coreg) 25 mg PO BID [facility] Last Admin: 03/05/19 13:02 Dose: 25 mg Cholecalciferol (Vitamin D3) 5,000 units PO DAILY [facility] Last Admin: 03/05/19 13:02 Dose: 5,000 units Hydralazine HCl (Apresoline) 100 mg PO TID [facility] Last Admin: 03/05/19 10:17 Dose: Not Given Isosorbide Mononitrate (Imdur) 60 mg PO BID [facility] Last Admin: 03/05/19 13:02 Dose: 60 mg Ketotifen Fumarate (Zaditor 0.025% Ophth Soln) 1 drop EA EYE BID [facility] Last Admin: 03/05/19 10:33 Dose: Not Given Latanoprost (Xalatan 0.005% Ophth Soln) 1 drop EA EYE [facility] Last Admin: 03/04/19 22:32 Dose: Not Given Lisinopril (Zestril) 20 mg PO DAILY [facility] Last Admin: 03/05/19 10:18 Dose: Not Given Minoxidil (Minoxidil) 10 mg PO DAILY [facility] Last Admin: 09/28/19 13:01 Dose: Not Given Nifedipine (Procardia Xl) 90 mg PO BID [facility] Last Admin: 03/05/19 13:02 Dose: 90 mg Ondansetron HCl (Zofran) 4 mg SLOW IVP Q6H PRN PRN Reason: Nausea/Vomiting Last Admin: 03/03/19 02:30 Dose: 4 mg Pantoprazole Sodium (Protonix) 40 mg PO DAILY [facility] Last Admin: 03/05/19 13:02 Dose: 40 mg Propylene Glycol (Systane Opth Drop 15ml Bot) 1 drop EA EYE QID [facility] Last Admin: 03/05/19 13:03 Dose: 1 drop Vital Signs & Weight: Vital Signs Temp Pulse Resp BP Pulse Ox 03/05/19 12:54 97.5 F L 71 17 140/77 99 03/05/19 07:18 97.1 F L 03/05/19 04:00 97.0 F L Admit Weight 152 lb 1 oz Weight 151 lb 14.376 oz - Physical Exam General: alert & oriented x3, no apparent distress HEENT: mucus membranes moist, normocephaly Neck: supple neck, midline trachea Cardiac: regular rate and rhythm Lungs: clear to auscultation, no wheeze, rales, rhonchi Neuro: grossly intact, coordination normal Abdomen: active bowel sounds, soft, non-tender Skin: clear Musculoskeletal: no pain - Labs Result Diagrams: 03/05/19 09:10 03/05/19 09:10 - Telemetry Sinus rhythms and dysrhythmias: sinus rhythm - Assessment/Plan Assessment/Plan: 1. SVT 2. Acute on chronic combined HF with EF 30-35% and grade III DD. 3. Non-ischemic CMY with AICD placement 4. Diarrhea - no diarrhea during this Admission 5. CAD with 50% stesnosis in RCA in 2013 6. ESRD with HD PLAN: - Continue Amiodarone load, BB - EP study thursday by EP.
[2019-03-05] MEDS ORDERED: Amiodarone 150 MG, Admixture Fee 1 EACH in Dextrose 5% in Water 100 ML IVPB SCH (19:00)
[2019-03-05] MEDS ORDERED: Amiodarone 450 MG, Admixture Fee 1 EACH in Dextrose 5% in Water 250 ML IVPB SCH (19:15)
[2019-03-05] MEDS: Latanoprost 0.005% Ophth Soln 2.5 ml Bottle EA EYE SCH (21:15)
[2019-03-05] MEDS: Atorvastatin Calcium 10 MG TAB PO SCH (21:15)
[2019-03-06] MEDS: Aspirin 81 mg Enteric Coated Tablet PO SCH (08:44)
[2019-03-06] MEDS: Amiodarone 200 MG TAB PO SCH (08:44)
[2019-03-06] MEDS: Ketotifen Fumarate 0.025% Ophth Soln 5 ml Bottle EA EYE SCH ×2 (08:45→20:50)
[2019-03-06] MEDS: Minoxidil 10 MG TAB PO SCH (08:45)
[2019-03-06] MEDS: Carvedilol 25 MG TAB PO SCH ×2 (08:45→21:22)
[2019-03-06] MEDS: Polyethylene Glycol OPTH DROP 15 ML BOT EA EYE SCH ×4 (08:45→20:49)
--- NOTE | 2019-03-06 17:12 | EKG ---
Test Reason : Blood Pressure : / mmHG Vent. Rate : 144 BPM Atrial Rate : 156 BPM P-R Int : 000 ms QRS Dur : 096 ms QT Int : 332 ms P-R-T Axes : 000 073 -10 degrees QTc Int : 514 ms Supraventricular tachycardia Low voltage QRS Nonspecific ST abnormality Abnormal QRS-T angle, consider primary T wave abnormality Abnormal ECG When compared with ECG of 01-MAR-2019 16:23, (Unconfirmed) QRS axis Shifted right T wave amplitude has increased in Anterior leads Confirmed by ALCIDES WHITE (2) on 03/06/2019 5:12:06 PM Referred By: WANDER Confirmed By:ALCIDES WHITE
--- NOTE | 2019-03-06 19:01 | PDOC.CPN ---
- Subjective Date: 03/06/19 Time: 19:00 Interval history: No new issue.s Doing well. - Review of Systems General: denies: fever/chills, weight/appetite/sleep changes, night sweats, fatigue Respiratory: denies: cough, congestion, shortness of breath, exercise intolerance Cardiovascular: denies: chest pain, palpitation, edema, paroxysmal nocturnal dyspnea, orthopnea Gastrointestinal: denies: nausea, vomiting, diarrhea, constipation, abd pain, GI bleeding Musculoskeletal: denies: pain, tenderness, stiffness, swelling, arthritis/ arthralgias Neurological: denies: numbness, syncope, seizure, weakness - Objective Allergies/Adverse Reactions: Allergies Allergy/AdvReac Type Severity Reaction Status Date / Time No Known Drug Allergies Allergy Verified 03/01/19 21:02 Visit Medications: Current Medications Amiodarone HCl (Cordarone) 200 mg PO DAILY [facility] Last Admin: 03/06/19 08:44 Dose: 200 mg Aspirin (Ecotrin) 81 mg PO DAILY [facility] Last Admin: 03/06/19 08:44 Dose: 81 mg Atorvastatin Calcium (Lipitor) 10 mg PO HS [facility] Last Admin: 03/05/19 21:15 Dose: 10 mg Carvedilol (Coreg) 25 mg PO BID [facility] Last Admin: 03/06/19 08:45 Dose: 25 mg Cholecalciferol (Vitamin D3) 5,000 units PO DAILY [facility] Last Admin: 03/06/19 08:45 Dose: 5,000 units Ketotifen Fumarate (Zaditor 0.025% Ophth Soln) 1 drop EA EYE BID [facility] Last Admin: 03/06/19 08:45 Dose: 1 drop Latanoprost (Xalatan 0.005% Ophth Soln) 1 drop EA EYE HS [facility] Last Admin: 03/05/19 21:15 Dose: 1 drop Minoxidil (Minoxidil) 10 mg PO DAILY [facility] Last Admin: 03/06/19 08:45 Dose: 10 mg Ondansetron HCl (Zofran) 4 mg SLOW IVP Q6H PRN PRN Reason: Nausea/Vomiting Last Admin: 03/03/19 02:30 Dose: 4 mg Pantoprazole Sodium (Protonix) 40 mg PO DAILY [facility] Last Admin: 03/06/19 08:45 Dose: 40 mg Propylene Glycol (Systane Opth Drop 15ml Bot) 1 drop EA EYE QID [facility] Last Admin: 03/06/19 16:07 Dose: 1 drop Vital Signs & Weight: Vital Signs Temp Pulse Resp BP BP Pulse Ox 03/06/19 15:17 98.3 F 70 16 110/70 96 03/06/19 11:14 98.5 F 78 18 107/68 98 03/06/19 07:17 98.5 F 86 17 141/88 H 100 Admit Weight 152 lb 1 oz Weight 160 lb 14.4 oz - Physical Exam General: alert & oriented x3, no apparent distress HEENT: mucus membranes moist, normocephaly Neck: supple neck, midline trachea Cardiac: regular rate and rhythm, no murmur Lungs: clear to auscultation, no wheeze, rales, rhonchi Neuro: grossly intact, coordination normal Abdomen: active bowel sounds, soft, non-tender Skin: clear Musculoskeletal: normal range of motion - Labs Result Diagrams: 03/05/19 09:10 03/05/19 09:10 - Telemetry Sinus rhythms and dysrhythmias: sinus rhythm - Assessment/Plan Assessment/Plan: 1. SVT 2. Acute on chronic combined HF with EF 30-35% and grade III DD. 3. Non-ischemic CMY with AICD placement 4. Diarrhea - no diarrhea during this Admission 5. CAD with 50% stesnosis in RCA in 2013 6. ESRD with HD PLAN: - Continue Amiodarone load, BB - EP study tomorrow by EP.
[2019-03-06] MEDS: Latanoprost 0.005% Ophth Soln 2.5 ml Bottle EA EYE SCH (20:50)
[2019-03-06] MEDS: Atorvastatin Calcium 10 MG TAB PO SCH (20:50)
--- NOTE | 2019-03-06 21:52 | PRG ---
DATE OF SERVICE: 03/06/2019 SUBJECTIVE: The patient is seen and examined. Hemodynamically stable. OBJECTIVE: HEENT: Unremarkable. CARDIOVASCULAR: First and second heart sounds were heard. RESPIRATORY: Clear to auscultation. DIGESTIVE: Revealed a benign abdomen. EXTREMITIES: No peripheral edema. SKIN: No new gross rash. LYMPHATICS: No peripheral lymphadenopathy. IMPRESSION: 1. End-stage renal disease, on hemodialysis. 2. Supraventricular tachycardia, we will do an EP study. 3. Nonischemic cardiomyopathy, status post AICD. 4. Anemia of chronic kidney disease. PLAN: 1. The patient to undergo electrophysiology study tomorrow. 2. . 3. Further management to be dependent on the clinical course. Job ID: [id number]
[2019-03-07 05:22] LABS: #Basophils 0.1 thou/uL (0.0-0.2); #Eosinphils 0.2 thou/uL (0.0-0.7); #Lymphocytes 1.7 thou/uL (1.20-3.40); #Monocytes 0.6 thou/uL (0.11-0.59); #Neutrophils 4.9 thou/uL (1.40-6.50); %Basophils 1.2 % (0.0-1.0); %Eosinophils 2.1 % (0.0-10.0); %Lymphocytes 22.8 % (21.0-51.0); %Monocytes 7.6 % (0.0-10.0); %Neutrophils 66.2 % (42.0-75.0); Hemoglobin 11.8 g/dL (14.0-18.0); Mean Corpuscular HGB CONC 32.5 g/dL (32.0-36.0); Mean Corpuscular Hemoglobin 29.9 pg (27.0-31.0); Mean Corpuscular Volume 92.1 fL (78.0-98.0); Mean Platelet Volume 7.8 fL (7.4-10.4); Platelet Count 154 thou/uL (130-400); RBC Distribution Width 14.4 % (11.5-14.5); Red Blood Cell (RBC) Count 3.94 mill/uL (4.70-6.10); White Blood Cell (WBC) Count 7.4 thou/uL (4.8-10.8)
[2019-03-07 05:58] LABS: Anion Gap 17 mmol/L (10-20); BUN (Urea Nitrogen) 30 mg/dL (8.4-25.7); Calc. Creatinine Clearance 10 mL/min (70-130); Calcium 8.6 mg/dL (7.8-10.44); Carbon Dioxide 26 mmol/L (22-29); Chloride 96 mmol/L (98-107); Estimated GFR-MDRD 8; Glucose 83 mg/dL (70-105); Potassium 4.2 mmol/L (3.5-5.1); Sodium 135 mmol/L (136-145)
[2019-03-07] MEDS: Aspirin 81 mg Enteric Coated Tablet PO SCH (07:19)
[2019-03-07] MEDS: Carvedilol 25 MG TAB PO SCH ×2 (07:27→20:51)
[2019-03-07] MEDS: Amiodarone 200 MG TAB PO SCH (07:27)
[2019-03-07] MEDS: Polyethylene Glycol OPTH DROP 15 ML BOT EA EYE SCH ×4 (07:28→20:53)
[2019-03-07] MEDS: Ketotifen Fumarate 0.025% Ophth Soln 5 ml Bottle EA EYE SCH ×2 (07:28→20:52)
[2019-03-07] MEDS: Latanoprost 0.005% Ophth Soln 2.5 ml Bottle EA EYE SCH (07:29)
--- NOTE | 2019-03-07 09:51 | CON ---
DATE OF CONSULTATION: 03/04/2019 REASON FOR CONSULTATION: SVT, ICD management, and ventricular tachycardia. HISTORY OF PRESENT ILLNESS: Mr. López is a 59-year-old gentleman, who presented to [facility] with reported nonstop diarrhea for 2 days. He also had some associated cramping in the abdomen and vomiting previously. While he was in the emergency room for evaluation, he was found to have tendency for tachycardia. He was given a fluid challenge, which did not affect his tachycardia. EKG review shows that he was given IV adenosine, which was successful in terminating his arrhythmias suggesting AVNRT. He has a dual-chamber ICD that was [place] [address] Armin Marr. Interrogation is in the chart. Currently, Mr. López reports that his diarrhea and GI issues have subsided significantly. He is scheduled today for revision of his right upper extremity fistula, which is still functional, but suboptimal in its function with his end-stage renal disease on dialysis. He reports awareness of palpitations and heart racing on occasion with increasing frequency in symptoms. He does occasionally feel dizzy and some mild chest pain when his heart is racing. He has not had any passing out or stroke-like symptoms. The patient reports that he has possibly undergone an electrophysiology study with Dr. Marr at the time of ICD implant, although those records are not available in the chart at this time. The patient denies having had an ablation done in the past to the best of his recollection. REVIEW OF SYSTEMS: Twelve-point review of systems was conducted and is negative, except that was listed above in the HPI. PAST MEDICAL HISTORY: 1. End-stage renal disease on hemodialysis 3 days a week. 2. Hypertension. 3. Severe cardiomyopathy. 4. Hyperlipidemia. 5. Renal cell carcinoma. 6. Chronic amiodarone therapy as well as dual-chamber ICD, placed in 2011 for a ventricular tachycardia. HOME MEDICATIONS: Include, 1. Systane Balance one drop each eye q.i.d. 2. Travatan 1 drop at bedtime to each eye. 3. Vitamin D 5000 units daily. 4. Pravastatin sodium 40 mg at bedtime. 5. Procardia XL 90 mg p.o. b.i.d. 6. Prevacid 30 mg p.o. daily. 7. Minoxidil 10 mg p.o. daily. 8. Zestril 20 mg daily. 9. Zaditor each eye b.i.d. 10. Hydralazine 100 mg p.o. t.i.d. 11. Imdur 60 mg p.o. b.i.d. 12. Coreg 25 mg p.o. b.i.d. 13. Aspirin 81 mg daily. 14. Amiodarone 200 mg p.o. daily. ALLERGIES: NO KNOWN DRUG ALLERGIES. FAMILY HISTORY: Noncontributory. SOCIAL HISTORY: Lives alone. Denies history of smoking, alcohol, or illicit drug use. 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 PHYSICAL EXAMINATION: RECENT VITAL SIGNS: 97.0 degrees Fahrenheit, pulse 84, blood pressure 116/81, respirations 14. GENERAL: The patient is alert and oriented. Speech is clear. Affect is appropriate. He is in no apparent distress at the time of exam. HEENT: Normocephalic, atraumatic. Sclerae anicteric. EOMs are intact. Oral mucosa is moist and pink. There is adequate dentition. NECK: Supple without jugular venous distention. HEART: His heart rate is . No significant murmur, rub, or gallop is appreciated. PMI is laterally displaced and faintly palpable. PULMONARY: Lungs are clear to auscultation bilaterally. No wheezes, crackles, or rhonchi appreciated. GI: Abdomen is soft and nontender without palpable masses. Hepatojugular reflux is negative. EXTREMITIES: Warm and dry to touch. Well perfused. Right upper extremity exhibits large fistula with positive for bruit and thrill. Bruit is referred throughout the thoracic cavity as well. NEUROLOGIC: Grossly intact and nonfocal. Gait is not assessed. DIAGNOSTIC STUDIES: Echocardiogram, ejection fraction 30% to 35%. Mild LVH. Restrictive filling pattern. Left atrium is severely dilated. Kxnn-li-ractidkt MR, severe TR, mild [place], mild LVH. LA area is 32.83 cm2. Hematology was reviewed and is unremarkable. Chemistry; potassium 3.9, creatinine 9.36, ALT 13, AST 27, alkaline phosphatase 45. BNP 1568. Telemetry and EKGs reviewed and show largely sinus rhythm with occasional episodes of SVT, highly suggestive of AVNRT. There are brief episodes of nonsustained ventricular tachycardia as well. Interrogation of dual-chamber ICD was performed, which shows battery is currently at 2.65 mV with an DARYL of 2.63. This is a dual-chamber ICD. There are some episodes of nonsustained ventricular tachycardia that are brief in duration. Device has recorded multiple episodes of ventricular tachycardia on the monitor zone, but upon review, this is more suggestive of SVT and more specifically AVNRT. There have been no defibrillator discharges. Battery is nearing DARYL, but has not depleted to the point where we can replace the generator at this time, 0% atrial fibrillation, A-sense, V-sense 97.9%, A-pace 2%, V-pace less than 0.1%. Overall normal functioning device with occasional episodes of SVT and nonsustained ventricular tachycardia, low burden and approaching elective replacement interval in the next 3 to 4 months likely. IMPRESSION: 1. Dual-chamber implantable cardioverter-defibrillator in situ with normal operation as detailed above and approaching elective replacement interval. 2. Nonsustained ventricular tachycardia, low burden. 3. Chronic amiodarone therapy for suppressing ventricular arrhythmias with good success. 4. 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 5. Atrial tachycardia. 6. Diarrhea. 7. End-stage renal disease on hemodialysis. 8. Right upper extremity fistula with suboptimal function with planned pseudoaneurysm repair. PLAN AND RECOMMENDATIONS: I find Mr. López's ICD is functioning normally. His ventricular arrhythmias are well suppressed with his chronic amiodarone therapy. His LFTs are within normal ranges. TSH was not assessed, which I will order given his long-term amiodarone therapy. At this point, he is having episodes of SVT, which he is aware of and also having symptoms with. 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 We discussed treatment options including continued medical management versus ablation for this arrhythmia issue. Ultimately, my recommendation for this would be ablation, which could be considered Thursday. At this point, he is having his pseudoaneurysm fistula repaired later today, despite his prior diarrhea was negative for C. diff. We will tentatively plan for EP study and ablation for his SVT coming on Thursday as long as he remains medically stable, and his diarrhea is well controlled. We discussed risks, benefits, and alternatives. The patient voices understanding and wishes to proceed with the ablation. He understands that his ICD is approaching DARYL, but that the generator cannot be replaced at this time. He has a followup appointment with his painter and decorator apprentice in [place] in mid March for this purpose, but he has been seen in our clinic from time to time as well. He had an appointment this summer for which he could not make. Thank you for allowing us to participate in the care of this patient. I will re-evaluate on Thursday and likely proceed with the SVT ablation. Job ID: [id number]
[2019-03-07] MEDS ORDERED: Midazolam HCl 2 mg/2 ml Vial ONE (10:18)
[2019-03-07] MEDS ORDERED: Fentanyl 100 MCG/2 ML VIAL ONE (10:18)
[2019-03-07] MEDS ORDERED: Propofol 500 MG/50 ML VIAL ONE ×2 (10:18→12:07)
[2019-03-07] MEDS ORDERED: Ketamine 50 MG/ML (10ML VIAL) ONE (10:18)
[2019-03-07] MEDS ORDERED: Glycopyrrolate 0.2 MG/ML 5 ML SYRINGE ONE ×2 (10:18→14:22)
[2019-03-07] MEDS ORDERED: Lidocaine 1% (PF) 30 ML VIAL ONE (10:21)
[2019-03-07] MEDS ORDERED: Phenylephrine HCL 10 MG/ML VIAL ONE (10:27)
[2019-03-07] MEDS ORDERED: Heparin 10,000 UNITS/1 ML VIAL ONE (10:47)
[2019-03-07] MEDS ORDERED: Isoproterenol 0.2 MG/1 ML AMP ONE (10:47)
--- NOTE | 2019-03-07 11:31 | PRG ---
DATE OF SERVICE: 03/02/2019 SUBJECTIVE: The patient is seen and examined. OBJECTIVE: HEENT: Unremarkable. CARDIOVASCULAR SYSTEM: First and second heart sounds were heard. Revealed tachycardia. Irregularly irregular. RESPIRATORY SYSTEM: Clear to auscultation. DIGESTIVE SYSTEM: Revealed a benign abdomen. IMPRESSION: 1. End-stage renal disease, on hemodialysis. 2. Tachyarrhythmia in the context of supraventricular tachycardia and possible atrial fibrillation. PLAN: 1. The patient to continue dialysis for Thursday, , and Thursday. 2. Further management to be dependent on the clinical course as well as further recommendations from the Cardiology Service. Job ID: [id number]
[2019-03-07] MEDS ORDERED: Promethazine HCl 25 MG/ML VIAL SLOW IVP PRN (13:13)
[2019-03-07] MEDS ORDERED: Promethazine HCl 25 MG/ML VIAL IM PRN (13:13)
[2019-03-07] MEDS ORDERED: Ondansetron HCl/PF 4 MG/2 ML Vial IVP PRN (13:13)
--- NOTE | 2019-03-07 14:17 | PDOC.CPN ---
- Subjective Date: 03/07/19 Time: 08:30 Interval history: The pt seen and examined. No overnight events. No cardiac complaints. - Objective Allergies/Adverse Reactions: Allergies Allergy/AdvReac Type Severity Reaction Status Date / Time No Known Drug Allergies Allergy Verified 03/01/19 21:02 Visit Medications: Current Medications Amiodarone HCl (Cordarone) 200 mg PO DAILY [facility] Last Admin: 03/07/19 07:27 Dose: 200 mg Aspirin (Ecotrin) 81 mg PO DAILY [facility] Last Admin: 03/07/19 07:19 Dose: Not Given Atorvastatin Calcium (Lipitor) 10 mg PO HS [facility] Last Admin: 03/06/19 20:50 Dose: 10 mg Carvedilol (Coreg) 25 mg PO BID [facility] Last Admin: 03/07/19 07:27 Dose: 25 mg Cholecalciferol (Vitamin D3) 5,000 units PO DAILY [facility] Last Admin: 03/07/19 07:27 Dose: 5,000 units Ketotifen Fumarate (Zaditor 0.025% Ophth Soln) 1 drop EA EYE BID [facility] Last Admin: 03/07/19 07:28 Dose: 1 drop Latanoprost (Xalatan 0.005% Ophth Soln) 1 drop EA EYE HS [facility] Last Admin: 03/07/19 07:29 Dose: 1 drop Minoxidil (Minoxidil) 10 mg PO DAILY [facility] Last Admin: 03/06/19 08:45 Dose: 10 mg Ondansetron HCl (Zofran) 4 mg SLOW IVP Q6H PRN PRN Reason: Nausea/Vomiting Last Admin: 03/03/19 02:30 Dose: 4 mg Ondansetron HCl (Pacu-Zofran) 4 mg IVP ONE PRN PRN Reason: Nausea/Vomiting Stop: 03/07/19 16:13 Pantoprazole Sodium (Protonix) 40 mg PO DAILY [facility] Last Admin: 03/07/19 07:27 Dose: 40 mg Promethazine HCl (Pacu-Phenergan) 6.25 mg SLOW IVP ONE PRN PRN Reason: Nausea/Vomiting Stop: 03/07/19 16:13 Promethazine HCl (Pacu-Phenergan) 6.25 mg IM ONE PRN PRN Reason: Nausea/Vomiting Stop: 03/07/19 16:13 Propylene Glycol (Systane Opth Drop 15ml Bot) 1 drop EA EYE QID [place] Last Admin: 03/07/19 07:28 Dose: 1 drop Vital Signs & Weight: Vital Signs Temp Pulse Resp BP BP Pulse Ox 03/07/19 07:55 97.6 F 82 18 115/74 100 03/07/19 04:10 98.3 F 77 16 109/68 97 Admit Weight 152 lb 1 oz Weight 167 lb 3.2 oz - Physical Exam General: alert & oriented x3 Neck: supple neck Cardiac: regular rate and rhythm, S1/S2 Lungs: clear to auscultation Neuro: cranial nerve 2-12 intact Skin: clear Musculoskeletal: normal range of motion - Labs Result Diagrams: 03/07/19 04:23 03/07/19 04:23 - Telemetry Sinus rhythms and dysrhythmias: sinus rhythm - Assessment/Plan Assessment/Plan: 1. s/p SVT - stable with Amiodarone 200mg PO qd; On BBlocker; cont. to monitor on tele; Plan for EP study and possible RFA by Dr Romo today, 03/07/2019 2. Acute on chronic combined HF with EF 30-35% and grade III dd - stable with RA ; On Coreg, Lisinopril and on HD 3. Non-ischemic CMY with AICD placement 4. Diarrhea - no diarrhea during this Admission 5. CAD with 50% stesnosis in RCA in 2013 - asymptomatic; on BBlocker, GINI, ASA, Lipitor 6. ESRD with HD; plan for HD shunt revison 2/2 pseudoaneurysm today 7. HTN - stable MAR reviewed * Echo on 03/02/2019 with EF 30-35%, grade III dd, mild LVH, mild-mod MR, severe TR, mild CA * Plan for EP study and possible RFA by Dr Romo on 03/07/2019 Pt. seen and eval. by me. He is s/p ablation of SVT today, doing well. Chest clear. RRR. No edema. I agree with the rest of the A/P by the SLOT TECHNICIAN.
[2019-03-07] MEDS ORDERED: PHENYLEPHRINE-NS 100 MCG/ML 10 ML SYRINGE ONE (14:22)
[2019-03-07] MEDS ORDERED: PROPOFOL 200 MG/20 ML VIAL ONE (14:22)
[2019-03-07] MEDS: Minoxidil 10 MG TAB PO SCH (14:48)
[2019-03-07] MEDS ORDERED: traMADol HCl 50 MG TAB PO PRN (15:23)
[2019-03-07] MEDS ORDERED: traMADol HCl 50 MG TAB PO SCH (18:00)
--- NOTE | 2019-03-07 18:30 | OP ---
DATE OF PROCEDURE: 03/07/2019 PROCEDURES PERFORMED: Electrophysiology study and radiofrequency ablation. REASON FOR PROCEDURE: Mr. López is a 59-year-old man with a history of end-stage renal disease, cardiomyopathy, and ICD in place. He has recurrent palpitations and is noted to have a narrow complex SVT on presentation, which also has been noted on his interrogation before. The staff was unable to terminate the arrhythmia. DESCRIPTION OF PROCEDURE: The patient received propofol by Anesthesia specialist. The left and right femoral vein was prepped, draped, and anesthetized with subcutaneous lidocaine. Under ultrasound guidance, the femoral veins were accessed. On the left side, a 6 and 8-Mauritanian sheath were used to advance an octapolar and decapolar catheter to the right atrium, right ventricle, His bundle, and CS position. Pacing, mapping, and recording were performed including pacing the left atrium from the CS location. The following findings were noted. Baseline rhythm was sinus rhythm, RR 950 milliseconds, LA 224 milliseconds, QRS 75 milliseconds, QT 386 milliseconds, AH 165 milliseconds, HV 52 milliseconds, sinus node recovery time was 1113 with recovery time corrected to about 200 milliseconds. AV Wenckebach cycle length initially was 420 milliseconds. Retrograde Wenckebach cycle length was 550 milliseconds, improving with Isuprel later. Initial AV ERP was 600/300 milliseconds. AV jump was not clearly demonstrated initially. Burst atrial pacing was performed and reviewed to induce atrial flutter with cycle length about 330 milliseconds. The flutter had typical activation pattern on the CS catheter and overdrive pacing at the cavotricuspid isthmus yielded post pacing interval matching the tachycardia cycle length. The cavotricuspid isthmus ablation was performed at this point, demonstrating the termination in atrial flutter and also prolonging the transisthmus time for initial 50 milliseconds to 200 milliseconds. Cavotricuspid isthmus block was demonstrated by longus transisthmus times adjacent via the ablation line. To achieve adequate ablation positions, an SRO catheter was also used in the end. At this point, Isuprel was initialized and the ablation line was rechecked. While continued burst atrial pacing was able to induce an additional arrhythmia, which was typical for AV mimi reentrant tachycardia cycle length was 530 millisecond cycle length with burst ventricular pacing yielded VA respond suggestive of not atrial tachycardia to be present, but AV reciprocating tachycardia. Due to short VA time as an 8 milliseconds AVNRT was diagnosed and slow pathway modification was performed using via [employer] SF catheter at 25 diego. No AV block was seen, but junctional rhythm was observed during these conte. At the end of the case, neither AV mimi reentrant tachycardia or atrial flutter was reinducible. No other arrhythmias were seen either. At the end of the case, the AV Wenckebach cycle length was 390 milliseconds. Isuprel was again used to recheck the inducibility of tachycardia. No change in a cardiac silhouette was noted. The patient tolerated the procedure well. Catheters and sheaths were removed in the cathode builder. Hemostasis was obtained with manual pressure. CONCLUSION: 1. Baseline sinus rhythm with normal sinus node recovery time. AV mimi and His-Purkinje function before and after ablation. 2. Inducible typical atrial flutter depending on the cavotricuspid isthmus, which was eliminated by cavotricuspid isthmus ablation and unilateral cavotricuspid isthmus block was demonstrated. 3. Although no dual AV mimi physiology was difficulty demonstrate on Isuprel, we were able to induce a narrow complex tachycardia in keeping the clinical SVT, which was diagnosed to be AV mimi reentrant tachycardia with very short VA timing. Slow pathway modification was performed with appropriate junctional beats and no inducible other tachycardia was seen then. 4. Normal AV mimi and His-Purkinje function post ablation. No evidence of accessory pathway seen. PLAN: Adjust AV mimi blocking agents to the heart failure status. Continue routine followup and ICD was checked pre and postprocedure. Routine ICD monitor is also advised. Job ID: [id number]
--- NOTE | 2019-03-07 19:49 | PRG ---
DATE OF SERVICE: 03/07/2019 SUBJECTIVE: The patient was seen and examined, noted with the following vital signs. OBJECTIVE: VITAL SIGNS: Afebrile, temperature 97.6, pulse 82, respiratory rate of 18, O2 saturation 100% with blood pressure of 115/74. HEENT: Unremarkable. Moist oral mucosa. NECK: Supple. No conjunctival injection or icterus. CARDIOVASCULAR SYSTEM: First and second heart sounds were heard. RESPIRATORY SYSTEM: Clear to auscultation. DIGESTIVE SYSTEM: Revealed a benign abdomen. Positive bowel sounds. EXTREMITIES: No peripheral edema. SKIN: No new gross rash. LYMPHATICS: No peripheral lymphadenopathy. IMPRESSION: 1. End-stage renal disease on hemodialysis Thursday, , and Thursday. 2. Supraventricular tachycardia to undergo radiofrequency ablation today. 3. Nonischemic cardiomyopathy. PLAN: 1. The patient to be dialyzed tomorrow in accordance with the schedule. 2. Further management will be dependent on the clinical course. Job ID: [id number]
[2019-03-07] MEDS: Atorvastatin Calcium 10 MG TAB PO SCH (20:51)
[2019-03-08] MEDS ORDERED: Acetaminophen/Codeine 30-300mg Tablet PO PRN ×2 (00:45)
[2019-03-08] MEDS: Aspirin 81 mg Enteric Coated Tablet PO SCH (14:11)
[2019-03-08] MEDS: Carvedilol 25 MG TAB PO SCH ×2 (14:11→19:56)
[2019-03-08] MEDS: Polyethylene Glycol OPTH DROP 15 ML BOT EA EYE SCH ×4 (14:14→19:57)
[2019-03-08] MEDS: Ketotifen Fumarate 0.025% Ophth Soln 5 ml Bottle EA EYE SCH ×2 (14:14→19:57)
--- NOTE | 2019-03-08 14:40 | PDOC.CPN ---
- Subjective Date: 03/08/19 Time: 14:43 Interval history: The pt seen and examined. No overnight events. No cardiac complaints. - Objective Allergies/Adverse Reactions: Allergies Allergy/AdvReac Type Severity Reaction Status Date / Time No Known Drug Allergies Allergy Verified 03/01/19 21:02 Visit Medications: Current Medications Acetaminophen/Codeine Phosphate (Tylenol #3) 1 tab PO Q4H PRN PRN Reason: Mild Pain (1-3) Acetaminophen/Codeine Phosphate (Tylenol #3) 2 tab PO Q4H PRN PRN Reason: Moderate Pain (4-6) Amiodarone HCl (Cordarone) 200 mg PO DAILY [facility] Aspirin (Ecotrin) 81 mg PO DAILY [facility] Last Admin: 03/08/19 14:11 Dose: 81 mg Atorvastatin Calcium (Lipitor) 10 mg PO HS [facility] Last Admin: 03/07/19 20:51 Dose: 10 mg Carvedilol (Coreg) 25 mg PO BID [facility] Last Admin: 03/08/19 14:11 Dose: 25 mg Cholecalciferol (Vitamin D3) 5,000 units PO DAILY [facility] Last Admin: 03/08/19 14:11 Dose: 5,000 units Ketotifen Fumarate (Zaditor 0.025% Ophth Soln) 1 drop EA EYE BID [facility] Last Admin: 03/08/19 14:14 Dose: 1 drop Latanoprost (Xalatan 0.005% Ophth Soln) 1 drop EA EYE HS [facility] Last Admin: 03/07/19 07:29 Dose: 1 drop Minoxidil (Minoxidil) 10 mg PO DAILY [facility] Last Admin: 03/07/19 14:48 Dose: Not Given Ondansetron HCl (Zofran) 4 mg SLOW IVP Q6H PRN PRN Reason: Nausea/Vomiting Last Admin: 03/03/19 02:30 Dose: 4 mg Pantoprazole Sodium (Protonix) 40 mg PO DAILY [facility] Last Admin: 03/08/19 14:11 Dose: 40 mg Propylene Glycol (Systane Opth Drop 15ml Bot) 1 drop EA EYE QID [facility] Last Admin: 03/08/19 14:15 Dose: Not Given Sodium Chloride (Flush - Normal Saline) 10 ml IVF Q12HR [place] Sodium Chloride (Flush - Normal Saline) 10 ml IVF PRN PRN PRN Reason: Saline Flush Tramadol HCl (Ultram) 50 mg PO Q6H PRN PRN Reason: Pain Last Admin: 03/07/19 15:36 Dose: 50 mg Vital Signs & Weight: Vital Signs Temp Pulse Resp BP BP Pulse Ox 03/08/19 07:47 97.7 F 68 18 120/71 98 03/08/19 04:00 97.4 F L 69 19 122/72 100 Admit Weight 152 lb 1 oz Weight 171 lb 1.6 oz - Physical Exam General: alert & oriented x3 HEENT: mucus membranes moist Neck: supple neck Cardiac: regular rate and rhythm, S1/S2 Lungs: clear to auscultation, decreased breath sounds Neuro: cranial nerve 2-12 intact Skin: clear Musculoskeletal: normal range of motion - Labs Result Diagrams: 03/07/19 04:23 03/07/19 04:23 - Telemetry Sinus rhythms and dysrhythmias: sinus rhythm - Assessment/Plan Assessment/Plan: 1. s/p SVT with s/p SVT RFA by Dr Romo on 03/07/2019 - stable with Amiodarone 200mg PO qd and On BBlocker 2. Acute on chronic combined HF with EF 30-35% and grade III dd - stable with RA ; On Coreg, Lisinopril and on HD 3. Non-ischemic CMY with AICD placement - plan for AICD generator replacement tomorrow 4. Diarrhea - no diarrhea during this Admission 5. CAD with 50% stesnosis in RCA in 2013 - asymptomatic; on BBlocker, GINI, ASA, Lipitor 6. ESRD with HD; plan for HD shunt revison 2/2 pseudoaneurysm today 7. HTN - stable MAR reviewed * Echo on 03/02/2019 with EF 30-35%, grade III dd, mild LVH, mild-mod MR, severe TR, mild PA * Plan for EP study and possible RFA by Dr Romo on 03/07/2019
[2019-03-08] MEDS: Minoxidil 10 MG TAB PO SCH (15:04)
--- NOTE | 2019-03-08 15:06 | PDOC.CPN ---
- Subjective Date: 03/08/19 Time: 08:00 Interval history: cc: diarrhea SVT in ER, terminated with adenosine. s/p EPS with CTI and slow pathway modification. ICD from 2012 near [place]. VT suppressed with amiodarone. - Review of Systems General: denies: fever/chills, weight/appetite/sleep changes, night sweats, fatigue Respiratory: denies: cough, congestion, shortness of breath, exercise intolerance Cardiovascular: denies: chest pain, palpitation, edema, paroxysmal nocturnal dyspnea, orthopnea Gastrointestinal: denies: nausea, vomiting, diarrhea, constipation, abd pain, GI bleeding Musculoskeletal: denies: pain, tenderness, stiffness, swelling, arthritis/ arthralgias Neurological: denies: numbness, syncope, seizure, weakness - Objective Allergies/Adverse Reactions: Allergies Allergy/AdvReac Type Severity Reaction Status Date / Time No Known Drug Allergies Allergy Verified 03/01/19 21:02 Visit Medications: Current Medications Acetaminophen/Codeine Phosphate (Tylenol #3) 1 tab PO Q4H PRN PRN Reason: Mild Pain (1-3) Acetaminophen/Codeine Phosphate (Tylenol #3) 2 tab PO Q4H PRN PRN Reason: Moderate Pain (4-6) Amiodarone HCl (Cordarone) 200 mg PO DAILY [facility] Aspirin (Ecotrin) 81 mg PO DAILY [facility] Last Admin: 03/08/19 14:11 Dose: 81 mg Atorvastatin Calcium (Lipitor) 10 mg PO HS [facility] Last Admin: 03/07/19 20:51 Dose: 10 mg Carvedilol (Coreg) 25 mg PO BID [facility] Last Admin: 03/08/19 14:11 Dose: 25 mg Cholecalciferol (Vitamin D3) 5,000 units PO DAILY [facility] Last Admin: 03/08/19 14:11 Dose: 5,000 units Ketotifen Fumarate (Zaditor 0.025% Ophth Soln) 1 drop EA EYE BID [facility] Last Admin: 03/08/19 14:14 Dose: 1 drop Latanoprost (Xalatan 0.005% Ophth Soln) 1 drop EA EYE HS [facility] Last Admin: 03/07/19 07:29 Dose: 1 drop Minoxidil (Minoxidil) 10 mg PO DAILY [facility] Last Admin: 03/07/19 14:48 Dose: Not Given Ondansetron HCl (Zofran) 4 mg SLOW IVP Q6H PRN PRN Reason: Nausea/Vomiting Last Admin: 03/03/19 02:30 Dose: 4 mg Pantoprazole Sodium (Protonix) 40 mg PO DAILY [facility] Last Admin: 03/08/19 14:11 Dose: 40 mg Propylene Glycol (Systane Opth Drop 15ml Bot) 1 drop EA EYE QID [place] Last Admin: 03/08/19 14:15 Dose: Not Given Sodium Chloride (Flush - Normal Saline) 10 ml IVF Q12HR [place] Sodium Chloride (Flush - Normal Saline) 10 ml IVF PRN PRN PRN Reason: Saline Flush Tramadol HCl (Ultram) 50 mg PO Q6H PRN PRN Reason: Pain Last Admin: 03/07/19 15:36 Dose: 50 mg Vital Signs & Weight: Vital Signs Temp Pulse Resp BP BP Pulse Ox 03/08/19 07:47 97.7 F 68 18 120/71 98 03/08/19 04:00 97.4 F L 69 19 122/72 100 Admit Weight 152 lb 1 oz Weight 171 lb 1.6 oz - Physical Exam General: alert & oriented x3, appears well, no apparent distress HEENT: mucus membranes moist, normocephaly Neck: supple neck, midline trachea, no JVD/HJR, no masses, no bruit, no lymphadenopathy, no thromegaly Cardiac: regular rate and rhythm, no murmur Lungs: clear to auscultation, normal breath sounds, normal exam, no wheeze, rales, rhonchi Neuro: grossly intact Abdomen: unremarkable, active bowel sounds, soft, non-tender - Labs Result Diagrams: 03/07/19 04:23 03/07/19 04:23 - Telemetry Sinus rhythms and dysrhythmias: sinus rhythm - Assessment/Plan Assessment/Plan: 1. SVT -s/p slow pathway modification for AVNRT -no recurrence 2. Atrial flutter -s/p CTI ablation 3. D-ICD -near [place], requiring generator change 4. Chronic amiodarone therapy -presumably for VT though no records are available to support this. Pt is poor historian Doing well after his EPS/ ablation 03/07. NPO tomorrow for ICD generator change. Rhythm is stable on amiodarone
[2019-03-08] MEDS: Atorvastatin Calcium 10 MG TAB PO SCH (19:56)
[2019-03-08] MEDS: Latanoprost 0.005% Ophth Soln 2.5 ml Bottle EA EYE SCH (19:57)
[2019-03-09 05:00] LABS: #Eosinphils 0.1 thou/uL (0.0-0.7); #Lymphocytes 1.1 thou/uL (1.20-3.40); #Monocytes 0.6 thou/uL (0.11-0.59); #Neutrophils 4.5 thou/uL (1.40-6.50); %Basophils 0.1 % (0.0-1.0); %Lymphocytes 17.4 % (21.0-51.0); %Neutrophils 71.5 % (42.0-75.0); Hemoglobin 11.2 g/dL (14.0-18.0); Mean Corpuscular HGB CONC 32.6 g/dL (32.0-36.0); Mean Platelet Volume 7.8 fL (7.4-10.4); Platelet Count 136 thou/uL (130-400); RBC Distribution Width 14.7 % (11.5-14.5); Red Blood Cell (RBC) Count 3.73 mill/uL (4.70-6.10); White Blood Cell (WBC) Count 6.3 thou/uL (4.8-10.8)
[2019-03-09 05:20] LABS: Anion Gap 14 mmol/L (10-20); BUN (Urea Nitrogen) 23 mg/dL (8.4-25.7); Calc. Creatinine Clearance 12 mL/min (70-130); Carbon Dioxide 26 mmol/L (22-29); Chloride 99 mmol/L (98-107); Potassium 4.3 mmol/L (3.5-5.1); Sodium 135 mmol/L (136-145)
[2019-03-09 05:21] LABS: Calcium 8.4 mg/dL (7.8-10.44); Estimated GFR-MDRD 10; Glucose 87 mg/dL (70-105)
[2019-03-09] MEDS: Carvedilol 25 MG TAB PO SCH (05:55)
[2019-03-09] MEDS: Aspirin 81 mg Enteric Coated Tablet PO SCH (08:05)
--- NOTE | 2019-03-09 08:06 | PRG ---
DATE OF SERVICE: 03/08/2019 SUBJECTIVE: The patient is seen and examined, seems to be doing much better, status post radiofrequency ablation, noted with the following vital signs. OBJECTIVE: VITAL SIGNS: Afebrile, temperature 97.7, pulse 68, respiratory rate of 18, O2 saturations of 98% with blood pressure 120/71. HEENT: Unremarkable. CARDIOVASCULAR: First and second heart sounds were heard. RESPIRATORY SYSTEM: Clear to auscultation. DIGESTIVE SYSTEM: Benign abdomen. Positive bowel sounds. EXTREMITIES: No peripheral edema. SKIN: No new gross rash. LYMPHATICS: No peripheral lymphadenopathy. IMPRESSION: 1. End-stage renal disease, on hemodialysis. 2. Supraventricular tachycardia, status post radiofrequency ablation. 3. revision, likely to undergo further revision in next couple of days. 4. . Job ID: [id number]
[2019-03-09] MEDS: Polyethylene Glycol OPTH DROP 15 ML BOT EA EYE SCH ×2 (08:08→12:00)
[2019-03-09] MEDS: Minoxidil 10 MG TAB PO SCH (08:08)
[2019-03-09] MEDS: Ketotifen Fumarate 0.025% Ophth Soln 5 ml Bottle EA EYE SCH (08:08)
[2019-03-09] MEDS ORDERED: Amiodarone 200 MG TAB PO SCH (09:00)
[2019-03-09] MEDS ORDERED: Lidocaine 1% (PF) 30 ML VIAL ONE (09:34)
[2019-03-09] MEDS ORDERED: Fentanyl 100 MCG/2 ML VIAL ONE (10:04)
[2019-03-09] MEDS ORDERED: Midazolam HCl 2 mg/2 ml Vial ONE (10:04)
[2019-03-09 11:00] VITALS: BP 114/68; TEMP 98
[2019-03-09 14:27] VITALS: BMI 24.1
[2019-03-09] MEDS ORDERED: Cephalexin 250 MG CAP PO SCH (15:00)
--- NOTE | 2019-03-09 19:51 | EKG ---
Test Reason : POST EP STUDY/ABLATI Blood Pressure : / mmHG Vent. Rate : 064 BPM Atrial Rate : 064 BPM P-R Int : 224 ms QRS Dur : 102 ms QT Int : 508 ms P-R-T Axes : -28 097 -69 degrees QTc Int : 524 ms Sinus rhythm with 1st degree A-V block Rightward axis Nonspecific T wave abnormality Prolonged QT Abnormal ECG When compared with ECG of 02-MAR-2019 15:40, AR interval has increased Vent. rate has decreased BY 80 BPM Non-specific change in ST segment in Inferior leads Inverted T waves have replaced nonspecific T wave abnormality in Lateral leads Confirmed by CHERISE GARIBAY, DR. Patel ([id number]) on 03/09/2019 7:50:39 PM Referred By: [facility] Confirmed By:DR. Jorge LUONG MD
--- NOTE | 2019-03-09 19:53 | EKG ---
Test Reason : Blood Pressure : / mmHG Vent. Rate : 065 BPM Atrial Rate : 065 BPM P-R Int : 208 ms QRS Dur : 096 ms QT Int : 486 ms P-R-T Axes : 057 079 145 degrees QTc Int : 505 ms Normal sinus rhythm Low voltage QRS Cannot rule out Inferior infarct , age undetermined Prolonged QT Abnormal ECG When compared with ECG of 07-MAR-2019 13:52, (Unconfirmed) Nonspecific T wave abnormality, improved in Inferior leads Confirmed by CHERISE GARIBAY, SJuan ([id number]) on 03/09/2019 7:53:13 PM Referred By: [facility] Confirmed By:DR. Jorge LUONG MD
--- NOTE | 2019-03-12 13:41 | EKG ---
Test Reason : Blood Pressure : / mmHG Vent. Rate : 116 BPM Atrial Rate : 117 BPM P-R Int : 000 ms QRS Dur : 088 ms QT Int : 400 ms P-R-T Axes : 000 -28 032 degrees QTc Int : 556 ms Sinus tachycardia Anterior infarct , age undetermined Prolonged QT Abnormal ECG Confirmed by MERCY MADRID ([id number]), features editor LINA QUEEN ([id number]) on 03/12/2019 1:41:02 PM Referred By: Confirmed By:MERCY MADRID
== END 2019-03-09 14:35 | disposition home or self-care (01) | DRG 226 ==
LOC: ERS 16:10 → T4-B 20:15 → 2NO 03-02 16:23 → IMCU/EMU 03-03 01:20 → 2NO 03-05 10:01
PROVIDERS: ADMIT Internal Medicine; ATTEND Internal Medicine
PROC: 03L Upper Arteries, Occlusion (ICD-10-PCS; 2019-03-01)
PROC: 03B50ZZ Excision of Right Axillary Artery, Open Approach (ICD-10-PCS; 2019-03-05)
PROC: 02583ZZ Destruction of Conduction Mechanism, Percutaneous Approach (ICD-10-PCS; 2019-03-07)
PROC: 4A023FZ Measurement of Cardiac Rhythm, Percutaneous Approach (ICD-10-PCS; 2019-03-07)
PROC: 4A0234Z Measurement of Cardiac Electrical Activity, Percutaneous Approach (ICD-10-PCS; 2019-03-07)
PROC: 3E1M39Z Irrigation of Peritoneal Cavity using Dialysate, Percutaneous Approach (ICD-10-PCS; 2019-03-08)
PROC: 0JH608Z Insertion of Defibrillator Generator into Chest Subcutaneous Tissue and Fascia, Open Approach (ICD-10-PCS; principal; 2019-03-09)
PROC: 02HK3KZ Insertion of Defibrillator Lead into Right Ventricle, Percutaneous Approach (ICD-10-PCS; 2019-03-09)
PROC: 0JPT0PZ Removal of Cardiac Rhythm Related Device from Trunk Subcutaneous Tissue and Fascia, Open Approach (ICD-10-PCS; 2019-03-09)
PROC: 5A1213Z Performance of Cardiac Pacing, Intermittent (ICD-10-PCS; 2019-03-09)
PROC: 02PA3MZ Removal of Cardiac Lead from Heart, Percutaneous Approach (ICD-10-PCS; 2019-03-09)
PROC: 02H63KZ Insertion of Defibrillator Lead into Right Atrium, Percutaneous Approach (ICD-10-PCS; 2019-03-09)
DX: I47.1 Supraventricular tachycardia (principal); N18.6 End stage renal disease; I50.33 Acute on chronic diastolic (congestive) heart failure; I13.2 Hypertensive heart and chronic kidney disease with heart failure and with stage 5 chronic kidney disease, or end stage renal disease; I42.2 Other hypertrophic cardiomyopathy; I42.0 Dilated cardiomyopathy; T82.898A Other specified complication of vascular prosthetic devices, implants and grafts, initial encounter; I42.8 Other cardiomyopathies; R19.7 Diarrhea, unspecified; I77.0 Arteriovenous fistula, acquired; I25.2 Old myocardial infarction; E78.5 Hyperlipidemia, unspecified; E78.00 Pure hypercholesterolemia, unspecified; G47.30 Sleep apnea, unspecified; Y83.8 Other surgical procedures as the cause of abnormal reaction of the patient, or of later complication, without mention of misadventure at the time of the procedure; M10.9 Gout, unspecified; D63.1 Anemia in chronic kidney disease; I25.10 Atherosclerotic heart disease of native coronary artery without angina pectoris; Z90.5 Acquired absence of kidney; Z95.810 Presence of automatic (implantable) cardiac defibrillator; Z85.53 Personal history of malignant neoplasm of renal pelvis
CPT/HCPCS: 33263; 36415; 36416; 71045; 76942; 80048; 80053; 83880; 85025; 87045; 87046; 87324; 87427; 87449; 88304; 90935; 93005; 93010; 93306; 93613; 93623; 93653; 93655; 96360; 99152; 99153; C1730; C1732; C1769; G0257; J0153; J0282; J0690; J1644; J2001; J2250; J2370; J2400; J2405; J2704; J2720; J3010; J3490; J7070; S0020

== ENCOUNTER 2019-03-16 05:42 | Day surgery (SDC) | payer MEDICARE ==
[2019-03-15 15:03] VITALS: BMI 21.5
[2019-03-16 08:42] LABS: #Eosinphils 0.1 thou/uL (0.0-0.7); #Lymphocytes 1.3 thou/uL (1.20-3.40); #Monocytes 0.5 thou/uL (0.11-0.59); #Neutrophils 4.6 thou/uL (1.40-6.50); %Basophils 0.3 % (0.0-1.0); %Eosinophils 1.6 % (0.0-10.0); %Lymphocytes 19.4 % (21.0-51.0); %Neutrophils 70.8 % (42.0-75.0); Hemoglobin 11.3 g/dL (14.0-18.0); Mean Corpuscular HGB CONC 32.3 g/dL (32.0-36.0); Mean Corpuscular Hemoglobin 29.7 pg (27.0-31.0); RBC Distribution Width 14.4 % (11.5-14.5); Red Blood Cell (RBC) Count 3.82 mill/uL (4.70-6.10); White Blood Cell (WBC) Count 6.5 thou/uL (4.8-10.8)
[2019-03-16 08:50] LABS: INR-International Normal Ratio 1.1; PTT 33.1 SEC (22.9-36.1)
[2019-03-16 08:53] LABS: Anion Gap 18 mmol/L (10-20); BUN (Urea Nitrogen) 18 mg/dL (8.4-25.7); Calc. Creatinine Clearance 10 mL/min (70-130); Calcium 9.1 mg/dL (7.8-10.44); Carbon Dioxide 27 mmol/L (22-29); Chloride 96 mmol/L (98-107); Estimated GFR-MDRD 9; Glucose 84 mg/dL (70-105); Potassium 4.5 mmol/L (3.5-5.1); Sodium 136 mmol/L (136-145)
[2019-03-16 09:01] LABS: MDiff Complete? YES; Mean Platelet Volume 8.9 fL (7.4-10.4); Ovalocytes SLIGHT = 2-5 cells (100X) (0-1/hpf); Platelet Count 99 thou/uL (130-400); Platelet Morphology Comment Appears Decreased; Polychromasia SLIGHT = 2-3 cells (100X) (0-2/hpf); Tear Drops SLIGHT = 2-5 cells (100X) (0-1/hpf)
[2019-03-16] MEDS ORDERED: Lidocaine 1% (PF) 30 ML VIAL ONE (09:33)
[2019-03-16] MEDS ORDERED: Midazolam HCl 2 mg/2 ml Vial ONE (09:33)
[2019-03-16] MEDS ORDERED: Fentanyl 100 MCG/2 ML VIAL ONE ×2 (09:33→12:30)
[2019-03-16] MEDS ORDERED: Ketamine 50 MG/ML (10ML VIAL) ONE (09:34)
[2019-03-16] MEDS ORDERED: Propofol 500 MG/50 ML VIAL ONE (09:34)
[2019-03-16] MEDS ORDERED: Glycopyrrolate 0.2 MG/ML 5 ML SYRINGE ONE (09:34)
[2019-03-16] MEDS ORDERED: Promethazine HCl 25 MG/ML VIAL SLOW IVP PRN (11:08)
[2019-03-16] MEDS ORDERED: Promethazine HCl 25 MG/ML VIAL IM PRN (11:08)
[2019-03-16] MEDS ORDERED: Ondansetron HCl/PF 4 MG/2 ML Vial IVP PRN (11:08)
[2019-03-16] MEDS ORDERED: HYDROcodone/Acetaminophen 5/325 mg Tablet ONE (14:26)
== END 2019-03-16 15:13 | disposition home or self-care (01) ==
LOC: CCL 05:42
PROVIDERS: ATTEND Internal Medicine Cardiovascular Disease
PROC: 0W980ZZ Drainage of Chest Wall, Open Approach (ICD-10-PCS; principal; 2019-03-16)
DX: M96.841 Postprocedural hematoma of a musculoskeletal structure following other procedure (principal); I25.5 Ischemic cardiomyopathy; I47.1 Supraventricular tachycardia; I13.2 Hypertensive heart and chronic kidney disease with heart failure and with stage 5 chronic kidney disease, or end stage renal disease; N18.6 End stage renal disease; I50.9 Heart failure, unspecified; E78.5 Hyperlipidemia, unspecified; Z79.82 Long term (current) use of aspirin; Z79.899 Other long term (current) drug therapy; Z90.5 Acquired absence of kidney; Z99.2 Dependence on renal dialysis
CPT/HCPCS: 33223; 80048; 85025; 85610; 85730; J0690; J2001; J2250; J2704; J3010; J3490

== ENCOUNTER 2019-07-22 07:42 | Day surgery (SDC) | payer MEDICARE ==
[2019-07-21 15:05] VITALS: BMI 26.1
[2019-07-22 09:25] LABS: #Basophils 0.1 thou/uL (0.0-0.2); #Eosinphils 0.1 thou/uL (0.0-0.7); #Lymphocytes 1.5 thou/uL (1.20-3.40); #Monocytes 0.5 thou/uL (0.11-0.59); #Neutrophils 4.3 thou/uL (1.40-6.50); %Basophils 1.1 % (0.0-1.0); %Lymphocytes 22.8 % (21.0-51.0); %Monocytes 7.7 % (0.0-10.0); %Neutrophils 66.5 % (42.0-75.0); Hemoglobin 14.4 g/dL (14.0-18.0); Mean Corpuscular HGB CONC 31.9 g/dL (32.0-36.0); Mean Corpuscular Hemoglobin 30.1 pg (27.0-31.0); Mean Corpuscular Volume 94.4 fL (78.0-98.0); Mean Platelet Volume 9.8 fL (7.4-10.4); Platelet Count 82 thou/uL (130-400); RBC Distribution Width 16.1 % (11.5-14.5); Red Blood Cell (RBC) Count 4.78 mill/uL (4.70-6.10); White Blood Cell (WBC) Count 6.4 thou/uL (4.8-10.8)
[2019-07-22 09:44] LABS: Anion Gap 19 mmol/L (10-20); BUN (Urea Nitrogen) 26 mg/dL (8.4-25.7); Calc. Creatinine Clearance 11 mL/min (70-130); Carbon Dioxide 27 mmol/L (22-29); Chloride 96 mmol/L (98-107); Estimated GFR-MDRD 8; Glucose 93 mg/dL (70-105); Potassium 5.4 mmol/L (3.5-5.1); Sodium 137 mmol/L (136-145)
[2019-07-22] MEDS ORDERED: hydrALAZINE 20 MG/ML VIAL ONE (09:52)
[2019-07-22] MEDS ORDERED: Lidocaine 1% w/Epinephrine 1:100K 20 ML VIAL ONE (10:14)
[2019-07-22] MEDS ORDERED: Bupivacaine PF 0.5% 30 ML VIAL ONE (10:14)
[2019-07-22] MEDS ORDERED: Protamine Sulfate 50 MG/5 ML VIAL ONE (10:14)
[2019-07-22] MEDS ORDERED: Heparin 5,000 UNITS/ML VIAL ONE (10:14)
[2019-07-22] MEDS ORDERED: Bupivacaine HCl 0.5%/Epinephrine 1:200,000/PF 30 ml Vial ONE (10:21)
[2019-07-22] MEDS ORDERED: Meperidine HCl/PF 25 MG/ML VIAL ONE (11:21)
[2019-07-22] MEDS ORDERED: Midazolam HCl 2 mg/2 ml Vial ONE ×2 (11:21→11:23)
[2019-07-22] MEDS ORDERED: Fentanyl 100 MCG/2 ML VIAL ONE (11:24)
--- NOTE | 2019-07-22 16:26 | PDOC.OP ---
Operative Note - Operative Note Operative Note: PROCEDURE: Right upper arm AV fistula pseudoaneurysm repair SURGEON: Hong Edmond M.D. 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 He has undergone previous repair of a pseudoaneurysm closer to the antecubital fossa and returns for repair of the upper pseudoaneurysm. PROCEDURE IN DETAIL: After informed consent was obtained and preoperative block placed, the patient was taken to the operating room where he was placed in supine position and IV anesthesia was administered. He was prepped and draped in standard sterile fashion. Adequacy of the block was confirmed and an ultrasound used to identify the position of the neck of the pseudoaneurysm proximally and distally. A skin incision was planned removing the stretched out damage skin overlying the pseudoaneurysm. Incisions were made proximally and distally and the normal caliber vessel dissected free circumferentially at each site. As dissection was being carried out proximally, there was some bleeding from the vessel which was able to be controlled with 6-0 Prolene sutures without narrowing the fistula. There was also some bleeding from large collateral veins in the subcutaneous tissues adjacent to the fistula, which was controlled with suture ligation. Once proximal and distal control was obtained the pseudoaneurysm was dissected out back to the posterior wall. An attempt was made to exclude the aneurysmal portion of the fistula with vascular clamps but the pseudoaneurysm was too large to traverse with a single vascular clamp and overlapping clamps were not successful and excluding flow from the portion of the pseudoaneurysm to be resected. Therefore, heparin was administered systemically and allowed to circulate for 3 minutes, following which the fistula was occluded proximally and distally at the neck of the aneurysm and the redundant aneurysmally dilated portion of the pseudoaneurysm was resected along with the overlying skin and the vessel repaired with a running 4-0 Prolene suture with excellent technical result. Flow was restored through the fistula with excellent flow. The incision was placed such that the suture line was lying somewhat medial so would not underlie the skin incision. The wound was irrigated and hemostasis obtained using Bovie electrocautery. There was some continued slow oozing from the subcutaneous tissues so protamine was administered and Surgicel placed to the wound. The subcutaneous tissues were reapproximated with a running 3-0 Monocryl suture and the skin was closed with a running 4-0 subcuticular Monocryl suture and Dermabond dressings were placed. Once this was dried and Willem wrap was placed and the patient was taken to recovery in good condition. Estimated blood loss was 100 mL's. There were no complications. Specimen is pseudoaneurysm.
== END 2019-07-22 17:00 | disposition home or self-care (01) ==
LOC: SDC 07:42
PROVIDERS: ATTEND Surgery
PROC: 05WY07Z Revision of Autologous Tissue Substitute in Upper Vein, Open Approach (ICD-10-PCS; principal; 2019-07-22)
DX: T82.898A Other specified complication of vascular prosthetic devices, implants and grafts, initial encounter (principal); I13.11 Hypertensive heart and chronic kidney disease without heart failure, with stage 5 chronic kidney disease, or end stage renal disease; N18.6 End stage renal disease; E78.00 Pure hypercholesterolemia, unspecified; M10.9 Gout, unspecified; I42.9 Cardiomyopathy, unspecified; Z79.82 Long term (current) use of aspirin; Z79.899 Other long term (current) drug therapy; Z90.5 Acquired absence of kidney
CPT/HCPCS: 36415; 80048; 85025; J0360; J0670; J0690; J1644; J2175; J2250; J2720; J3010; S0020

== ENCOUNTER 2019-07-27 07:03 | Day surgery (SDC) | payer MEDICARE ==
[2019-07-26 11:40] VITALS: BMI 24.3
[2019-07-27] MEDS ORDERED: Fentanyl 100 MCG/2 ML VIAL ONE (10:48)
[2019-07-27] MEDS ORDERED: Phenylephrine HCL 10 MG/ML VIAL ONE (10:48)
[2019-07-27] MEDS ORDERED: Ketamine 50 MG/ML (10ML VIAL) ONE (10:58)
[2019-07-27] MEDS ORDERED: Propofol 500 MG/50 ML VIAL ONE (10:58)
[2019-07-27] MEDS ORDERED: Heparin 10,000 UNITS/1 ML VIAL ONE (11:01)
[2019-07-27] MEDS ORDERED: Sodium Chloride 0.9% 0 ML ONE ×2 (11:01→12:27)
[2019-07-27] MEDS ORDERED: Lidocaine 1% w/Epinephrine 1:100K 20 ML VIAL ONE (11:01)
[2019-07-27] MEDS ORDERED: Bupivacaine 0.25% HCL 30 ML VIAL ONE (11:01)
[2019-07-27] MEDS ORDERED: Lidocaine 2% w/Epinephrine 1:200K 20 ML VIAL ONE (11:01)
[2019-07-27] MEDS ORDERED: Glycopyrrolate 0.2 MG/ML 5 ML SYRINGE ONE (11:05)
[2019-07-27] MEDS ORDERED: PROPOFOL 200 MG/20 ML VIAL ONE (11:05)
[2019-07-27] MEDS ORDERED: Sodium Chloride 0.9% 20 ML ONE (11:10)
--- NOTE | 2019-07-27 14:31 | RAD ---
PORTABLE CHEST: Date: 07/27/2019 HISTORY: Attempted dialysis catheter placement. COMPARISON: 02/07/19 study. FINDINGS: Heart size is markedly enlarged with internal defibrillator device placed. The lungs are clear of any infiltrates. I see no signs of pneumothorax. A HemoSplit type catheter is seen coming from the abdom en. Catheter extends to what would be near the right atrium and superior vena cava junction. IMPRESSION: Dialysis catheter overlying the region of the right atrium and superior vena cava junction. POS: [facility]
[2019-07-27] MEDS ORDERED: HYDROcodone/Acetaminophen 5/325 mg Tablet ONE (15:04)
--- NOTE | 2019-08-03 14:32 | PDOC.OP ---
Operative Note - Operative Note Operative Note: DATE OF PROCEDURE: 07/27/2019 PROCEDURE: Placement of right femoral tunneled hemodialysis catheter with ultrasound and fluoroscopic guidance. SURGEON: Hong Edmond M.D. PREOPERATIVE DIAGNOSIS: End-stage renal failure. POSTOPERATIVE DIAGNOSIS: End-stage renal failure. HISTORY: Patient recently underwent repair of pseudoaneurysm. On attempts to access the AV fistula above the pseudoaneurysm he developed a large hematoma. Recommendation was made to place a tunneled dialysis catheter for access while the fistula is healing since he no longer has adequate space to access his fistula above and below the surgical site. PROCEDURE: After informed consent was obtained and appropriate preoperative antibiotics were administered, the patient was taken to the Operating Room, placed in the supine position and monitored anesthesia care was administered. The neck and chest were prepped and draped in a standard sterile fashion and the patient placed in Trendelenburg position. A sterile ultrasound probe was used to identify the patent compressible right IJ vein which was accessed under direct ultrasound guidance. A wire was threaded through the needle and confirmed by ultrasound to be within the patent compressible vessel. However despite multiple attempts the wire would not advance into the superior vena cava. The neck was repositioned and the wire was turned and traction placed on the arm but the wire would not advance down into the superior vena cava despite multiple attempts. The left internal jugular vein was then accessed under direct ultrasound guidance but again the wire would not advance into the superior vena cava despite multiple maneuvers and attempts. The patient was then prepped in the bilateral groin area and draped sterilely and ultrasound guidance used to access the patent compressible right femoral vein. The wire was advanced and confirmed to have the tip in the inferior vena cava by fluoroscopy. Local anesthesia was infused thigh. An incision was made over the anterior thigh and a catheter tunneled to the right femoral access site. The vein was sequentially dilated over the wire following which a dilator and sheath were placed over the wire and the dilator and wire removed leaving the sheath in place. The catheter was tunneled through the sheath which was then split and removed leaving the catheter in place. This was confirmed by fluoroscopy to be in good position in the inferior vena cava with no kinking of the course of the catheter. Both ports easily aspirated dark venous nonpulsatile blood and easily flushed without resistance. Heparin was instilled to the quantity specified on the hub, and the hub was secured to the skin with 3-0 nylon sutures. The skin incision at the groin was closed in two layers with 4-0 Monocryl suture and Dermabond dressings were placed. The skin at the exit site was snugged up around the catheter with 4-0 Monocryl suture and Dermabond was placed there as well. Once the Dermabond was dry, a Biopatch and Tegaderm dressing was placed at the exit site. The patient was taken to Recovery in good condition. Estimated blood loss was minimal. There were no complications. There were no specimens.
== END 2019-07-27 15:15 | disposition home or self-care (01) ==
LOC: SDC 07:03
PROVIDERS: ATTEND Surgery
PROC: 06HM33Z Insertion of Infusion Device into Right Femoral Vein, Percutaneous Approach (ICD-10-PCS; principal; 2019-07-27)
DX: I12.0 Hypertensive chronic kidney disease with stage 5 chronic kidney disease or end stage renal disease (principal); N18.6 End stage renal disease; T82.898A Other specified complication of vascular prosthetic devices, implants and grafts, initial encounter; E78.00 Pure hypercholesterolemia, unspecified; M10.9 Gout, unspecified; I42.9 Cardiomyopathy, unspecified; Z79.82 Long term (current) use of aspirin; Z79.899 Other long term (current) drug therapy; Z90.5 Acquired absence of kidney; Z99.2 Dependence on renal dialysis
CPT/HCPCS: 36573; 71045; C1752; C1769; J0690; J1644; J2370; J2704; J3010; S0020

== ENCOUNTER 2019-12-31 03:27 | Emergency (ER) | payer MEDICARE ==
[2019-12-31 04:22] LABS: #Eosinphils 0.1 thou/uL (0.0-0.7); #Lymphocytes 1.5 thou/uL (1.20-3.40); #Monocytes 0.7 thou/uL (0.11-0.59); #Neutrophils 7.2 thou/uL (1.40-6.50); %Basophils 0.5 % (0.0-1.0); %Eosinophils 1.5 % (0.0-10.0); %Lymphocytes 15.5 % (21.0-51.0); %Monocytes 7.3 % (0.0-10.0); %Neutrophils 75.3 % (42.0-75.0); Hemoglobin 13.6 g/dL (14.0-18.0); Mean Corpuscular HGB CONC 31.2 g/dL (32.0-36.0); Mean Corpuscular Hemoglobin 29.4 pg (27.0-31.0); Mean Corpuscular Volume 94.2 fL (78.0-98.0); Mean Platelet Volume 8.7 fL (7.4-10.4); Platelet Count 144 thou/uL (130-400); Red Blood Cell (RBC) Count 4.63 mill/uL (4.70-6.10); White Blood Cell (WBC) Count 9.5 thou/uL (4.8-10.8)
[2019-12-31 04:44] LABS: ALT (SGPT) 11 U/L (8-55); AST (SGOT) 11 U/L (5-34); Albumin 3.7 g/dL (3.5-5.0); Alkaline Phosphatase 61 U/L (40-110); Anion Gap 19 mmol/L (10-20); BUN (Urea Nitrogen) 33 mg/dL (8.4-25.7); Bilirubin, Total 0.5 mg/dL (0.2-1.2); Calc. Creatinine Clearance 0 mL/min (70-130); Calcium 8.9 mg/dL (7.8-10.44); Carbon Dioxide 29 mmol/L (22-29); Chloride 93 mmol/L (98-107); Estimated GFR-MDRD 6; Globulin 3.9 g/dL (2.4-3.5); Glucose 105 mg/dL (70-105); Potassium 4.9 mmol/L (3.5-5.1); Protein, Total 7.6 g/dL (6.0-8.3); Sodium 136 mmol/L (136-145)
[2019-12-31 05:07] LABS: CKMB 1.2 ng/mL (0-6.6)
[2019-12-31] MEDS ORDERED: Ketorolac Tromethamine 30 MG/ML VIAL ONE (05:13)
[2019-12-31 06:58] LABS: Troponin I 0.174 ng/mL (< 0.028)
--- NOTE | 2019-12-31 07:59 | RAD ---
CHEST 1 VIEW: INDICATION: Chest pain. COMPARISON: Prior exam dated 07/27/2019. IMPRESSION: Automatic implantable cardioverter/defibrillator, cardiomegaly, and mild pulmonary vascular congestio n is stable-appearing. No acute airspace opacity, pleural effusion, or pneumothorax is evident. POS: [facility]
== END 2019-12-31 07:18 | disposition home or self-care (01) ==
LOC: ERS 03:27
DX: R07.9 Chest pain, unspecified (principal); E78.5 Hyperlipidemia, unspecified; I25.2 Old myocardial infarction; I50.9 Heart failure, unspecified; I11.0 Hypertensive heart disease with heart failure
CPT/HCPCS: 36415; 71045; 80053; 82553; 84484; 85025; 93005; 96372; J1885

== ENCOUNTER 2020-08-08 18:34 | Observation (INO) | payer MEDICARE ==
[2020-08-08] MEDS ORDERED: traMADol HCl 50 MG TAB ONE (20:24)
[2020-08-08 22:07] LABS: ALT (SGPT) 12 U/L (8-55); AST (SGOT) 8 U/L (5-34); Albumin 3.8 g/dL (3.5-5.0); Alkaline Phosphatase 60 U/L (40-110); Anion Gap 25 mmol/L (10-20); BUN (Urea Nitrogen) 56 mg/dL (8.4-25.7); Bilirubin, Total 0.9 mg/dL (0.2-1.2); Calc. Creatinine Clearance 0 mL/min (70-130); Calcium 8.4 mg/dL (7.8-10.44); Carbon Dioxide 25 mmol/L (22-29); Chloride 92 mmol/L (98-107); Glucose 95 mg/dL (70-105); Potassium 5.4 mmol/L (3.5-5.1); Protein, Total 7.8 g/dL (6.0-8.3); Sodium 137 mmol/L (136-145)
[2020-08-09 01:49] VITALS: BMI 24.5
[2020-08-09] MEDS ORDERED: Ondansetron PF 4 MG/2 ML Vial IVP PRN (02:00)
[2020-08-09] MEDS ORDERED: Acetaminophen 325 MG TAB PO PRN (02:00)
[2020-08-09] MEDS ORDERED: Ondansetron ODT 4 MG TAB SL PRN (02:00)
[2020-08-09 07:18] LABS: Anion Gap 25 mmol/L (10-20); BUN (Urea Nitrogen) 59 mg/dL (8.4-25.7); Calc. Creatinine Clearance 5 mL/min (70-130); Calcium 8.2 mg/dL (7.8-10.44); Carbon Dioxide 21 mmol/L (22-29); Chloride 95 mmol/L (98-107); Glucose 83 mg/dL (70-105); Potassium 5.4 mmol/L (3.5-5.1); Sodium 136 mmol/L (136-145)
[2020-08-09 07:32] LABS: #Basophils 0.1 thou/uL (0.0-0.2); #Eosinphils 0.1 thou/uL (0.0-0.7); #Lymphocytes 1.4 thou/uL (1.20-3.40); #Monocytes 0.7 thou/uL (0.11-0.59); #Neutrophils 7.8 thou/uL (1.40-6.50); %Basophils 0.6 % (0.0-1.0); %Lymphocytes 14.1 % (21.0-51.0); %Monocytes 6.9 % (0.0-10.0); %Neutrophils 77.4 % (42.0-75.0); Hemoglobin 13.9 g/dL (14.0-18.0); Mean Corpuscular HGB CONC 30.5 g/dL (32.0-36.0); Mean Corpuscular Volume 95.1 fL (78.0-98.0); Mean Platelet Volume 10.2 fL (7.4-10.4); Platelet Count 87 thou/uL (130-400); White Blood Cell (WBC) Count 10.1 thou/uL (4.8-10.8)
[2020-08-09] MEDS ORDERED: Heparin 10,000 UNITS/ 10 ML VIAL ONE (08:32)
[2020-08-09] MEDS: Heparin 5,000 UNITS/ML VIAL SC SCH ×2 (08:36→14:42)
[2020-08-09] MEDS ORDERED: Aspirin 81 mg Enteric Coated Tablet PO SCH (09:00)
[2020-08-09] MEDS ORDERED: Amiodarone 200 MG TAB PO SCH (09:00)
[2020-08-09] MEDS ORDERED: Non-Formulary Item 1 EACH (Lansoprazole [Prevacid] 30 MG Capsule.Dr) PO SCH (09:00)
[2020-08-09 14:42] VITALS: BP 145/84; TEMP 98
[2020-08-09] MEDS ORDERED: Atorvastatin Calcium 10 MG TAB PO SCH (21:00)
[2020-08-09] MEDS ORDERED: Latanoprost 0.005% Ophth Soln 2.5 ml Bottle EA EYE SCH (21:00)
[2020-08-09] MEDS ORDERED: TRAVOPROST EA EYE SCH (21:00)
[2020-08-09] MEDS ORDERED: Pravastatin Sodium 40 MG TAB PO SCH (21:00)
== END 2020-08-09 19:00 | disposition home or self-care (01) ==
LOC: ERS 18:34 → 3SE 23:42
PROVIDERS: ADMIT Student in an Organized Health Care Education/Training Program; ATTEND Internal Medicine
DX: M25.561 Pain in right knee (principal); I13.2 Hypertensive heart and chronic kidney disease with heart failure and with stage 5 chronic kidney disease, or end stage renal disease; N18.6 End stage renal disease; I50.9 Heart failure, unspecified; E87.5 Hyperkalemia; E87.2 Acidosis; G47.33 Obstructive sleep apnea (adult) (pediatric); I25.2 Old myocardial infarction; E78.5 Hyperlipidemia, unspecified; M10.9 Gout, unspecified; I25.10 Atherosclerotic heart disease of native coronary artery without angina pectoris; I42.9 Cardiomyopathy, unspecified; Z85.528 Personal history of other malignant neoplasm of kidney; Z91.15 Patient's noncompliance with renal dialysis; Z79.82 Long term (current) use of aspirin; Z79.899 Other long term (current) drug therapy; Z95.810 Presence of automatic (implantable) cardiac defibrillator; Z90.5 Acquired absence of kidney; Z99.2 Dependence on renal dialysis
CPT/HCPCS: 36415; 80048; 80053; 85025; 90935; 93005; G0257; G0378; J1644